=== PATIENT | male | born 1950 | race Caucasian/White ===

== ENCOUNTER 2019-03-02 12:11 | Inpatient (IN) | payer MEDICARE, OTHER ==
[~2019-03-02] VITALS: Ht 167.6 cm; Wt 88.9 kg
[2019-03-02 12:24] VITALS: Ht 167.6 cm; Wt 88.9 kg
[2019-03-02] MEDS ORDERED: VANCOMYCIN 1 GM (PMX) 250 ML IVPB STA (13:35)
[2019-03-02] MEDS ORDERED: PIPER-TAZO 3.375 GM IV (PMX) 100 ML IVPB STA (13:35)
[2019-03-02] MEDS ORDERED: GLIM1TAB2 PO (14:00)
[2019-03-02] MEDS ORDERED: ERGO500013 PO (14:00)
[2019-03-02] MEDS ORDERED: ACETAMINOPHEN 325 MG TAB PO PRN (14:00)
[2019-03-02] MEDS ORDERED: ONDANSETRON 4 MG INJ IV PRN (14:00)
[2019-03-02] MEDS ORDERED: ASPI-817 PO (14:00)
[2019-03-02] MEDS ORDERED: ATOR40TA68 PO (14:01)
[2019-03-02] MEDS ORDERED: MONT10TA24 PO (14:01)
[2019-03-02] MEDS ORDERED: AMIT10TA6 PO (14:01)
[2019-03-02] MEDS ORDERED: AMLO1CAP12 PO (14:02)
[2019-03-02] MEDS ORDERED: LYR75 PO (14:03)
[2019-03-02] MEDS ORDERED: SITA1TAB5 PO (14:03)
[2019-03-02] MEDS ORDERED: TIOT18CA INHALATION (14:05)
[2019-03-02] MEDS ORDERED: ICOS1CAP PO (14:06)
[2019-03-02] MEDS ORDERED: ALBU18HF INHALATION (14:06)
[2019-03-02] MEDS ORDERED: DOCU250C58 PO (14:06)
[2019-03-02] MEDS ORDERED: BUPR150T6 PO (14:09)
[2019-03-02 15:50] VITALS: BP 125/71; PULSE 86; RESP 18
--- NOTE | 2019-03-02 16:11 | ERD ---
ER Documentation Chief Complaint Chief Complaint Sent from MD for evaluation Cellulitis HPI Patient is a 68-year-old male with diabetes who presents with right leg infection. The patient was sent by Dr. Lucas for admission. The patient has right knee redness which started on Tuesday. It has been worsening. He is able to move the leg without pain. He has had no antibiotics as of yet. He had fever and chills per Dr. Lucas. ROS All systems reviewed and are negative except as per history of present illness. Medications Home Meds Reported Medications Bupropion Hcl* (Bupropion XL*) 150 Mg Tab.er.24h, 150 MG PO DAILY, TAB.SA 03/02/19 Icosapent Ethyl (VASCEPA) 1 Gm Capsule, 2 GM PO BID, CAP 03/02/19 Albuterol Sulfate* (Ventolin HFA*) 18 Gm Hfa.aer.ad, 2 PUFF INHALATION Q4H, #1 INHALER 03/02/19 Docusate Sodium* (Colace*) 250 Mg Capsule, 250 MG PO BID, #60 CAP 03/02/19 Tiotropium Spencer* (Spiriva*) 18 Mcg Cap.w.dev, 1 CAP INHALATION DAILY, #30 CAP 03/02/19 Sitagliptin Phos/Metformin HCl (Janumet 50-1,000 mg Tablet) 1 Each Tablet, 1 EACH PO BID, TAB 03/02/19 Pregabalin* (Lyrica*) 75 Mg Capsule, 75 MG PO DAILY, CAP 03/02/19 Amlodipine Besylate/Benazepril (Amlodipine-Benazepril 10-20 mg) 1 Each Capsule, 1 EACH PO DAILY, CAP 03/02/19 Amitriptyline Hcl* (Amitriptyline Hcl*) 10 Mg Tablet, 10 MG PO QHS, #30 TAB 03/02/19 Montelukast Sodium* (Montelukast Sodium*) 10 Mg Tablet, 10 MG PO QHS, #30 TAB 03/02/19 Atorvastatin* (Atorvastatin*) 40 Mg Tablet, 40 MG PO QHS, #30 TAB 03/02/19 Glimepiride* (Glimepiride*) 1 Mg Tablet, 1 MG PO WITH BREAKFAST, TAB 03/02/19 Aspirin* (Aspirin* EC) 81 Mg Tablet., 81 MG PO DAILY, TAB 03/02/19 Ergocalciferol (Vitamin D2) (VITAMIN D2) 50,000 Unit Capsule, 76689 UNIT PO Q 14D, CAP 03/02/19 Allergies Allergies: Coded Allergies: No Known Allergy (Unverified , 03/02/19) PMhx/Soc Medical and Surgical Hx: pt denies Surgical Hx Hx Cardiac Disorders: Yes (cholesterol, HTN) Hx Alcohol Use: Yes (1 shot vodka/ daily) Hx Substance Use: No Hx Tobacco Use: Yes (pack/ daily) Smoking Status: Current every day smoker FmHx Family History: No diabetes Physical Exam Vitals Vital Signs Date Temp Pulse Resp B/P (MAP) Pulse Ox O2 O2 Flow FiO2 Time Delivery Rate 03/02/19 97.9 96 20 127/57 95 12:24 (80) Physical Exam Const: No acute distress Head: Atraumatic Eyes: Normal Conjunctiva ENT: Normal External Ears, Nose and Mouth. Neck: Full range of motion. No meningismus. Resp: Clear to auscultation bilaterally Cardio: Regular rate and rhythm, no murmurs Abd: Soft, non tender, non distended. Normal bowel sounds Skin: Right knee redness over the patella with warmth to touch, no joint effusion, does not appear to be a intra-articular infection. Back: No midline or flank tenderness Ext: No cyanosis, or edema Neur: Awake and alert Psych: Normal Mood and Affect Result Diagram: 03/02/19 1345 03/02/19 1345 Results 24 hrs Laboratory Tests Test 03/02/19 13:45 03/02/19 13:47 White Blood Count 12.3 10^3/ul Red Blood Count 5.27 10^6/ul Hemoglobin 15.2 g/dl Hematocrit 46.8 % Mean Corpuscular Volume 88.8 fl Mean Corpuscular Hemoglobin 28.8 pg Mean Corpuscular Hemoglobin Concent 32.5 g/dl Red Cell Distribution Width 13.5 % Platelet Count 330 10^3/UL Mean Platelet Volume 8.9 fl Immature Granulocytes % 1.100 % Neutrophils % 68.2 % Lymphocytes % 20.6 % Monocytes % 7.7 % Eosinophils % 1.8 % Basophils % 0.6 % Nucleated Red Blood Cells % 0.0 /100WBC Immature Granulocytes # 0.140 10^3/ul Neutrophils # 8.4 10^3/ul Lymphocytes # 2.5 10^3/ul Monocytes # 0.9 10^3/ul Eosinophils # 0.2 10^3/ul Basophils # 0.1 10^3/ul Nucleated Red Blood Cells # 0.0 10^3/ul Sodium Level 137 mmol/L Potassium Level 4.3 mmol/L Chloride Level 97 mmol/L Carbon Dioxide Level 34 mmol/L Anion Gap 6 Blood Urea Nitrogen 15 mg/dl Creatinine 0.71 mg/dl Est Glomerular Filtrat Rate mL/min > 60 mL/min Glucose Level 196 mg/dl Calcium Level 9.4 mg/dl Troponin I < 0.012 ng/ml POC Venous Lactate 1.0 mmol/L Current Medications Medications Dose Sig/Maia Start Time Status Last (Trade) Ordered Route PRN Stop Time Admin Dose Reason Admin Vancomycin 250 ml @ ONCE STAT 03/02/19 DC 03/02/19 HCl 125 mls/hr IVPB 13:35 14:39 03/02/19 15:34 Piperacillin 100 ml @ ONCE STAT 03/02/19 DC 03/02/19 Sod/ 200 mls/hr IVPB 13:35 14:17 Tazobactam 03/02/19 14:04 Sod Procedures/MDM Patient is a 68-year-old male who presents with right leg redness and swelling. Ultrasound was negative for DVT per radiology. The patient likely has acute right leg cellulitis with diabetes. I doubt joint infection. The patient will be admitted to the care of Dr. Lucas to a medical surgical bed. He was given IV antibiotics. I doubt sepsis at this time. Departure Diagnosis: Primary Impression: Cellulitis Site of cellulitis: extremity Site of cellulitis of extremity: lower extremity Laterality: right Qualified Codes: L03.115 - Cellulitis of right lower limb Condition: ANNALISE Faye MD March 02, 2019 16:11
[2019-03-02 19:51] VITALS: BP 117/65; PULSE 95; RESP 18
[2019-03-02] MEDS ORDERED: ACETAMINOPHEN 500 MG TAB PO PRN (20:00)
[2019-03-02] MEDS: ACCU-CHEK XX SCH (20:00)
[2019-03-02] MEDS ORDERED: DIPHENHYDRAMINE 25 MG CAP PO PRN (20:00)
--- NOTE | 2019-03-02 20:21 | PN ---
Date/Time of Note Date/Time of Note DATE: 03/02/19 TIME: 20:13 Assessment/Plan VTE Prophylaxis SCD contraindicated: other (on.) Pharmacological prophylaxis: LMWH Lines/Catheters IV Catheter Type (from Nrsg): Saline Lock Central line still needed: No Urinary Cath still in place: No Reason Cath still needed: urinary retention Assessment/Plan Assessment/Plan 1.Cellulitis of right lower limb 2. Systolic and diastolic congestive heart failure 3. Hypertension out of control 4. COPD 5. Heavy cigarette smoker more than 50 years more than a pack a day 6. BPH 7.Dyslipidemia 8. Obesity 9. Snoring with apnea 10. Ischemic heart disease angina 11. Phosphorus 12. Osteoarthritis 13. Upper and lower back pain 14. Memory impairment 15. Diabetes mellitus type 2 most of the time of control 16.incomplete data Result Diagram: 03/02/19 1345 03/02/19 1345 Results 24hrs Laboratory Tests Test 03/02/19 13:45 03/02/19 13:47 03/02/19 16:46 White Blood Count 12.3 H Red Blood Count 5.27 Hemoglobin 15.2 Hematocrit 46.8 Mean Corpuscular Volume 88.8 Mean Corpuscular Hemoglobin 28.8 L Mean Corpuscular Hemoglobin Concent 32.5 Red Cell Distribution Width 13.5 Platelet Count 330 Mean Platelet Volume 8.9 Immature Granulocytes % 1.100 H Neutrophils % 68.2 Lymphocytes % 20.6 Monocytes % 7.7 Eosinophils % 1.8 Basophils % 0.6 Nucleated Red Blood Cells % 0.0 Immature Granulocytes # 0.140 H Neutrophils # 8.4 H Lymphocytes # 2.5 Monocytes # 0.9 Eosinophils # 0.2 Basophils # 0.1 Nucleated Red Blood Cells # 0.0 Sodium Level 137 Potassium Level 4.3 Chloride Level 97 Carbon Dioxide Level 34 H Anion Gap 6 Blood Urea Nitrogen 15 Creatinine 0.71 Est Glomerular Filtrat Rate mL/min > 60 Glucose Level 196 Calcium Level 9.4 Troponin I < 0.012 POC Venous Lactate 1.0 Lactic Acid Level 1.0 Subjective 24 Hr Interval Summary Free Text/Dictation Patient came to the office with a complaint of being unable to walk secondary to the pain and redness of the anterior part of the right knee which is getting worse last 3 days. The patient is having a fever and chills I did do more lower extremities he was wheezing he was known to me with uncontrolled diabetes mellitus. I have decided to admit the patient to the hospital management for over 2 days control infection which definitely is not cellulitis most probably MRSA and then continue treatment as an outpatient. Subjective hx not possible: pt non-verbal Constitutional: improved, chills, disoriented, poor po, requiring O2; No no complaints, No diaphoresis, No febrile, No requiring IVF, No other Eyes: No no complaints, No pain, No discharge, No redness, No visual change, No other ENT: no complaints, pain, congestion, dysphagia, sore throat; No bleeding, No discharge, No other Respiratory: cough, pleuritic pain, shortness of breath, sputum, wheezing; No no complaints, No pain, No other Cardiovascular: chest pain, edema, lightheadedness, orthopenea, palpitations, paroxysmal nocturnal dyspnea; No no complaints, No other Gastrointestinal: constipation, decreased appetite, flatus, nausea, passing stool; No no complaints, No pain, No blood, No diarrhea, No vomiting, No other Genitourinary: dysuria; No no complaints, No bleeding, No discharge, No flank pain, No hematuria, No other Musculoskeletal: back pain, bone/joint pain, neck pain, swelling Skin: erythema (Right knee anteriorly); No no complaints, No bruising, No laceration, No pruritis, No rash, No skin lesions, No other Neurologic: dizziness, headache; No no complaints, No confusion, No focal-weakness, No syncope, No seizure, No other Endocrine: polydypsia, dry skin; No no complaints, No polyuria, No temp intolerance, No other Lymphatic: lymphadema; No no complaints, No adenopathy, No tender nodes, No other Psychological: anxiety, depression; No no complaints, No nl mood/affect, No confusion, No suicidal, No other Immunologic: No no complaints, No immunodeficiency, No pruritis, No rhinitis, No urticaria, No other Exam/Review of Systems Exam Vitals Vital Signs Date Temp Pulse Resp B/P (MAP) Pulse Ox O2 O2 Flow FiO2 Time Delivery Rate 03/02/19 98.4 95 18 117/65 93 19:51 (82) 03/02/19 Room Air 15:50 Constitutional: alert, oriented, well developed, distress, frail, obese; No non-verbal, No other Psych: anxiety, depression; No no complaints, No nl mood/affect, No confusion, No suicidal, No other Head: normocephalic, atraumatic; No lacerations, No hematomas, No other Eyes: EOMI, nl lids, PERRL, icteric; No nl conjunctiva, No nl sclera, No fundi, disc, No other ENMT: nl external ears & nose, nl nasal mucosa & septum, tympanic membranes; No nl lips & teeth, No mucosa pink and moist, No intubated, No other Neck: jvd, bruits, thyromegaly, nuchal rigidity; No supple, No non-tender, No masses, No other Respiratory: clear to auscultation, congested cough, crackles/rales, diminished breath sounds; No normal air movement, No intercostal retraction, No labored breathing, No respirations, No tactile fremitus, No wheezing, No other Cardiovascular: regular rate and rhythm, nl pulses, bruits, edema, systolic murmur; No diastolic murmur, No gallop, No irregular rhythm, No jugular venous distention (JVD), No murmurs/extra sounds, No rub, No S3, No S4, No other Gastrointestinal: soft, nl liver, spleen, bowel sounds, distended, hepatomegaly; No non-tender, No ascites, No firm, No mass, No rebound or guarding, No splenomegaly, No surgical scars, No tender, No other Genitourinary - Male: nl penis, nl scrotum Musculoskeletal: joint tenderness, muscle tone, muscle weakness; No nl extremities to inspection, No nl gait and stance, No range of motion, No spine non-tender, No swelling, No other Extremities: normal pulses, edema, pitting pedal edema, tenderness, other (Right knee erythematous over the midline just above the patella also inferiorly bright red); No calf tenderness, No cyanosis, No clubbing, No palpable cord Neurological: GLUE MACHINE OPERATOR II-XII intact, numbness; No nl mental status, No nl speech, No nl strength, No confused, No DTR's symmetric, No focal weakness, No lethargic, No reflexes, No unresponsive, No other Skin: nl turgor ( with pain and possible fluid accumulation); No rash or lesions, No diaphoresis, No ecchymosis, No laceration, No punc ture, No other Lymph: No nl lymph nodes, No enlarged, No nontender, No other Results Results 24hrs Laboratory Tests Test 03/02/19 13:45 03/02/19 13:47 03/02/19 16:46 White Blood Count 12.3 H Red Blood Count 5.27 Hemoglobin 15.2 Hematocrit 46.8 Mean Corpuscular Volume 88.8 Mean Corpuscular Hemoglobin 28.8 L Mean Corpuscular Hemoglobin Concent 32.5 Red Cell Distribution Width 13.5 Platelet Count 330 Mean Platelet Volume 8.9 Immature Granulocytes % 1.100 H Neutrophils % 68.2 Lymphocytes % 20.6 Monocytes % 7.7 Eosinophils % 1.8 Basophils % 0.6 Nucleated Red Blood Cells % 0.0 Immature Granulocytes # 0.140 H Neutrophils # 8.4 H Lymphocytes # 2.5 Monocytes # 0.9 Eosinophils # 0.2 Basophils # 0.1 Nucleated Red Blood Cells # 0.0 Sodium Level 137 Potassium Level 4.3 Chloride Level 97 Carbon Dioxide Level 34 H Anion Gap 6 Blood Urea Nitrogen 15 Creatinine 0.71 Est Glomerular Filtrat Rate mL/min > 60 Glucose Level 196 Calcium Level 9.4 Troponin I < 0.012 POC Venous Lactate 1.0 Lactic Acid Level 1.0 LUIGI CHOWDHURY MD March 02, 2019 20:21
[2019-03-02] MEDS: NICOTINE (14 MG/24 HR) PATCH TRANSDERM SCH (20:30)
[2019-03-02] MEDS ORDERED: BUMETANIDE 1 MG TAB PO ONE (20:30)
[2019-03-02] MEDS ORDERED: INSULIN ASPART [NOVOLOG] 3 ML PEN SC SCH (21:00)
[2019-03-02] MEDS: ALBUTEROL HFA 8 GM INHALER INH SCH (21:00)
[2019-03-02] MEDS ORDERED: GLUCOSE GEL 15 GRAM TUBE PO PRN ×2 (21:30)
[2019-03-02] MEDS ORDERED: DEXTROSE 50% 50 ML SYRINGE IV PRN ×2 (21:30)
[2019-03-02] MEDS ORDERED: GLUCAGON 1 MG INJ IM PRN (21:30)
[2019-03-02] MEDS ORDERED: GLUCOSE GEL 15 GRAM TUBE BUCCAL PRN (21:30)
[2019-03-02] MEDS: SPIRONOLACTONE 50 MG TAB PO SCH (22:04)
[2019-03-02] MEDS: MONTELUKAST 10 MG TAB GTB SCH (22:06)
[2019-03-02] MEDS: DOCUSATE SODIUM 250 MG CAP PO SCH (22:07)
[2019-03-02] MEDS: ATORVASTATIN 40 MG TAB PO SCH (22:07)
[2019-03-02] MEDS: AMITRIPTYLINE 10 MG TAB PO SCH (22:07)
[2019-03-03] MEDS ORDERED: INSULIN GLARGINE [LANTus] (100 UNITS/ML) SYG SC ONE
[2019-03-03] MEDS: PIPER-TAZO 3.375 GM IV (PMX) 100 ML IVPB SCH ×4 (00:36→21:44)
[2019-03-03] MEDS: ALBUTEROL HFA 8 GM INHALER INH SCH ×5 (01:00→17:12)
[2019-03-03] MEDS: Insulin NOVOLOG SS MODERATE Algorithm(NPO/TPN/ENTERAL FEEDS) SC SCH ×4 (01:16→19:48)
[2019-03-03 01:24] VITALS: BP 121/71; PULSE 86; RESP 18
[2019-03-03] MEDS ORDERED: INSULIN ASPART [NOVOLOG] 3 ML PEN SC SCH ×3 (01:30→08:00)
[2019-03-03] MEDS ORDERED: ACCU-CHEK XX SCH (02:00)
[2019-03-03] MEDS: ACCU-CHEK XX SCH ×4 (06:00→17:11)
[2019-03-03] MEDS ORDERED: PIPER-TAZO 3.375 GM IV (PMX) 100 ML IVPB SCH (06:00)
[2019-03-03 07:39] VITALS: BP 117/70; PULSE 84; RESP 17
--- NOTE | 2019-03-03 08:32 | PN ---
Date/Time of Note Date/Time of Note DATE: 03/03/19 TIME: 08:29 Assessment/Plan VTE Prophylaxis Risk score (from Ns)>0 risk: 4 SCD applied (from [facility]): No SCD contraindicated: other (on) Pharmacological prophylaxis: LMWH Lines/Catheters [facility] (from [facility] Saline Lock Central line still needed: No Urinary Cath still in place: No Reason Cath still needed: urinary retention Assessment/Plan Assessment/Plan 1.Cellulitis of right lower limb 2. Systolic and diastolic congestive heart failure 3. Hypertension out of control 4. COPD 5. Heavy cigarette smoker more than 50 years more than a pack a day 6. BPH 7.Dyslipidemia 8. Obesity 9. Snoring with apnea 10. Ischemic heart disease angina 11. Phosphorus 12. Osteoarthritis 13. Upper and lower back pain 14. Memory impairment 15. Diabetes mellitus type 2 most of the time of control 16.Hypoxemia 17.Unstable gate 17.incomplete data Result Diagram: 03/02/19 1345 03/02/19 1345 Results 24hrs Laboratory Tests Test 03/02/19 13:45 03/02/19 13:47 03/02/19 16:46 03/02/19 22:00 White Blood Count 12.3 H Red Blood Count 5.27 Hemoglobin 15.2 Hematocrit 46.8 Mean Corpuscular 88.8 Volume Mean Corpuscular 28.8 L Hemoglobin Mean Corpuscular 32.5 Hemoglobin Concent Red Cell 13.5 Distribution Width Platelet Count 330 Mean Platelet Volume 8.9 Immature 1.100 H Granulocytes % Neutrophils % 68.2 Lymphocytes % 20.6 Monocytes % 7.7 Eosinophils % 1.8 Basophils % 0.6 Nucleated Red Blood 0.0 Cells % Immature 0.140 H Granulocytes # Neutrophils # 8.4 H Lymphocytes # 2.5 Monocytes # 0.9 Eosinophils # 0.2 Basophils # 0.1 Nucleated Red Blood 0.0 Cells # Sodium Level 137 Potassium Level 4.3 Chloride Level 97 Carbon Dioxide Level 34 H Anion Gap 6 Blood Urea Nitrogen 15 Creatinine 0.71 Est Glomerular > 60 Filtrat Rate mL/min Glucose Level 196 Calcium Level 9.4 Troponin I < 0.012 POC Venous Lactate 1.0 Lactic Acid Level 1.0 Bedside Glucose 293 H Test 03/03/19 00:35 03/03/19 01:00 03/03/19 03:22 03/03/19 06:12 Lactic Acid Level 1.1 1.3 1.2 Bedside Glucose 167 Subjective 24 Hr Interval Summary Free Text/Dictation Chills not as intense as yesterday. Constitutional: improved, chills, diaphoresis, febrile, poor po, requiring O2; No no complaints, No disoriented, No requiring IVF, No other Eyes: No no complaints, No pain, No discharge, No redness, No visual change, No other ENT: pain, congestion, dysphagia; No no complaints, No bleeding, No discharge, No sore throat, No other Respiratory: cough, pleuritic pain, shortness of breath; No no complaints, No pain, No sputum, No wheezing, No other Cardiovascular: chest pain, edema; No no complaints, No lightheadedness, No orthopenea, No palpitations, No paroxysmal nocturnal dyspnea, No other Gastrointestinal: no complaints, constipation, decreased appetite, flatus, nausea, passing stool; No pain, No blood, No diarrhea, No vomiting, No other Genitourinary: dysuria, discharge; No no complaints, No bleeding, No flank pain, No hematuria, No other Musculoskeletal: back pain, bone/joint pain; No no complaints, No neck pain, No restricted range of motion, No swelling, No other Skin: erythema, pruritis, rash; No no complaints, No bruising, No laceration, No skin lesions, No other Neurologic: dizziness; No no complaints, No confusion, No focal-weakness, No headache, No syncope, No seizure, No other Endocrine: polyuria, dry skin; No no complaints, No polydypsia, No temp intolerance, No other Lymphatic: No no complaints, No adenopathy, No tender nodes, No lymphadema, No other Psychological: anxiety, depression; No no complaints, No nl mood/affect, No confusion, No suicidal, No other Immunologic: No no complaints, No immunodeficiency, No pruritis, No rhinitis, No urticaria, No other Exam/Review of Systems Exam Vitals Vital Signs Date Temp Pulse Resp B/P (MAP) Pulse Ox O2 O2 Flow FiO2 Time Delivery Rate 03/03/19 98.1 84 17 117/70 92 07:39 (86) 03/02/19 Room Air 15:50 Intake and Output 03/02/19 03/02/19 03/03/19 1414:59 22:59 06:59 IntakeIntake Total 350 ml 100 ml BalanceBalance 350 ml 100 ml Constitutional: alert, oriented, well developed, distress, frail Psych: anxiety; No no complaints, No nl mood/affect, No confusion, No depression, No suicidal, No other Head: normocephalic, atraumatic; No lacerations, No hematomas, No other Eyes: EOMI, nl lids; No nl conjunctiva, No nl sclera, No PERRL, No icteric, No fundi, disc, No other ENMT: nl external ears & nose; No nl lips & teeth, No nl nasal mucosa & septum, No mucosa pink and moist, No intubated, No tympanic membranes, No other Neck: supple, jvd, bruits, thyromegaly, nuchal rigidity; No non-tender, No masses, No other Respiratory: congested cough, diminished breath sounds, respirations, wheezing; No clear to auscultation, No normal air movement, No crackles/rales, No intercostal retraction, No labored breathing, No tactile fremitus, No other Cardiovascular: regular rate and rhythm, edema, systolic murmur; No nl pulses, No bruits, No diastolic murmur, No gallop, No irregular rhythm, No jugular venous distention (JVD), No murmurs/extra sounds, No rub, No S3, No S4, No other Gastrointestinal: soft, nl liver, spleen, bowel sounds; No non-tender, No ascites, No distended, No firm, No hepatomegaly, No mass, No rebound or guarding, No splenomegaly, No surgical scars, No tender, No other Genitourinary - Male: nl penis, nl scrotum Musculoskeletal: nl extremities to inspection, muscle tone, muscle weakness; No nl gait and stance, No joint tenderness, No range of motion, No spine non- tender, No swelling, No other Extremities: normal pulses; No calf tenderness, No cyanosis, No clubbing, No edema, No pitting pedal edema, No palpable cord, No tenderness, No other Neurological: CARGO AND CONTAINER INSPECTOR II-XII intact, nl mental status, numbness; No nl speech, No nl strength, No confused, No DTR's symmetric, No focal weak ness, No lethargic, No reflexes, No unresponsive, No other Results Results 24hrs Laboratory Tests Test 03/02/19 13:45 03/02/19 13:47 03/02/19 16:46 03/02/19 22:00 White Blood Count 12.3 H Red Blood Count 5.27 Hemoglobin 15.2 Hematocrit 46.8 Mean Corpuscular 88.8 Volume Mean Corpuscular 28.8 L Hemoglobin Mean Corpuscular 32.5 Hemoglobin Concent Red Cell 13.5 Distribution Width Platelet Count 330 Mean Platelet Volume 8.9 Immature 1.100 H Granulocytes % Neutrophils % 68.2 Lymphocytes % 20.6 Monocytes % 7.7 Eosinophils % 1.8 Basophils % 0.6 Nucleated Red Blood 0.0 Cells % Immature 0.140 H Granulocytes # Neutrophils # 8.4 H Lymphocytes # 2.5 Monocytes # 0.9 Eosinophils # 0.2 Basophils # 0.1 Nucleated Red Blood 0.0 Cells # Sodium Level 137 Potassium Level 4.3 Chloride Level 97 Carbon Dioxide Level 34 H Anion Gap 6 Blood Urea Nitrogen 15 Creatinine 0.71 Est Glomerular > 60 Filtrat Rate mL/min Glucose Level 196 Calcium Level 9.4 Troponin I < 0.012 POC Venous Lactate 1.0 Lactic Acid Level 1.0 Bedside Glucose 293 H Test 03/03/19 00:35 03/03/19 01:00 03/03/19 03:22 03/03/19 06:12 Lactic Acid Level 1.1 1.3 1.2 Bedside Glucose 167 Medications Medication Current Medications Diagnostic Test (Pha) (Accu-Chek) 1 ea Q6 XX Last administered on 03/03/19at 00:00; Admin Dose 1 EA; Start 03/02/19 at 20:00; Stop 03/03/19 at 19:59 Acetaminophen (Tylenol Tab) 500 mg Q8 PRN PO MILD PAIN(1-3)OR ELEVATED TEMP; Start 03/02/19 at 20:00 Diphenhydramine HCl (Benadryl) 25 mg Q8 PRN PO ITCHING Last administered on 03/02/19at 22:08; Admin Dose 25 MG; Start 03/02/19 at 20:00 Albuterol (Ventolin Hfa) 2 puff Q4H RESP THERAPY INH ; Start 03/02/19 at 21:00 Amitriptyline HCl (Elavil) 10 mg HS PO Last administered on 03/02/19at 22:07; Admin Dose 10 MG; Start 03/02/19 at 21:00 Aspirin (Halfprin) 81 mg DAILY PO ; Start 03/03/19 at 09:00 Atorvastatin Calcium (Lipitor) 40 mg HS PO Last administered on 03/02/19at 22:07; Admin Dose 40 MG; Start 03/02/19 at 21:00 Bupropion HCl (Wellbutrin Xl) 150 mg DAILY PO ; Start 03/03/19 at 09:00 Docusate Sodium (Colace) 250 mg BID PO Last administered on 03/02/19at 22:07; Admin Dose 250 MG; Start 03/02/19 at 21:00 Glimepiride (Amaryl) 1 mg AC BREAKFAST GTB ; Start 03/03/19 at 07:00 Montelukast Sodium (Singulair) 10 mg HS GTB Last administered on 03/02/19at 22:06; Admin Dose 10 MG; Start 03/02/19 at 21:00 Pregabalin (Lyrica) 75 mg DAILY PO ; Start 03/03/19 at 09:00 Tiotropium [place] (Spiriva) 1 inh DAILY INH ; Start 03/03/19 at 09:00 Vancomycin HCl 250 ml @ 125 mls/hr Q24H IVPB ; Start 03/03/19 at 09:00 Nicotine (Nicoderm 14 Mg/ 24hr) 1 patch DAILY TRANSDERM ; Start 03/02/19 at 20:30 Spironolactone (Aldactone) 50 mg DAILY PO Last administered on 03/02/19at 22:04; Admin Dose 50 MG; Start 03/02/19 at 20:30 Miscellaneous Information 1 ea NOTE XX ; Start 03/02/19 at 21:30 Glucose (Glutose) 15 gm Q15M PRN PO DECREASED GLUCOSE; Start 03/02/19 at 21:30 Glucose (Glutose) 22.5 gm Q15M PRN PO DECREASED GLUCOSE; Start 03/02/19 at 21:30 Dextrose (D50w Syringe) 25 ml Q15M PRN IV DECREASED GLUCOSE; Start 03/02/19 at 21:30 Dextrose (D50w Syringe) 50 ml Q15M PRN IV DECREASED GLUCOSE; Start 03/02/19 at 21:30 Glucagon (Glucagen) 1 mg Q15M PRN IM DECREASED GLUCOSE; Start 03/02/19 at 21:30 Glucose (Glutose) 15 gm Q15M PRN BUCCAL DECREASED GLUCOSE; Start 03/02/19 at 21 :30 Amlodipine Besylate (Norvasc) 10 mg DAILY PO ; Start 03/03/19 at 09:00 Benazepril HCl (Lotensin) 20 mg DAILY PO ; Start 03/03/19 at 09:00 Non-Formulary Medication 1 ea BID PO ; Start 03/03/19 at 09:00; Status UNV Metformin HCl (Glucophage) 1,000 mg BID WITH MEALS PO ; Start 03/03/19 at 08:00 Linagliptin (Tradjenta) 2.5 mg BID WITH MEALS PO ; Start 03/03/19 at 08:00 Piperacillin Sod/ Tazobactam Sod 100 ml @ 200 mls/hr Q8 IVPB Last administered on 03/03/19at 06:25; Admin Dose 200 MLS/HR; Start 03/02/19 at 23:00 Insulin Aspart (Novolog Insulin Pen) (Adult SC Insulin - Moder... Q6H SC Last administered on 03/03/19at 01:16; Admin Dose 2 UNIT; Start 03/03/19 at 01:30; Stop 03/03/19 at 20:59 LUIGI CHOWDHURY MD March 03, 2019 08:32
[2019-03-03] MEDS: DOCUSATE SODIUM 250 MG CAP PO SCH ×2 (08:39→21:43)
[2019-03-03] MEDS: TIOTROPIUM 18 MCG CAPSULE INHA DEV INH SCH (08:39)
[2019-03-03] MEDS: AMLODIPINE 10 MG TAB PO SCH (08:42)
[2019-03-03] MEDS: BUPROPION (XL) 150 MG TAB PO SCH (08:42)
[2019-03-03] MEDS: LINAGLIPTIN 5 MG TABLET PO SCH ×2 (08:43→17:10)
[2019-03-03] MEDS: PREGABALIN 75 MG CAP PO SCH (08:43)
[2019-03-03] MEDS: GLIMEPIRIDE 2 MG TAB GTB SCH (08:43)
[2019-03-03] MEDS: ASPIRIN (EC) 81 MG TAB PO SCH (08:43)
[2019-03-03] MEDS: BENAZEPRIL 20 MG TAB PO SCH (08:44)
[2019-03-03] MEDS: metFORMIN 500 MG TAB PO SCH ×2 (08:44→17:09)
[2019-03-03] MEDS: SPIRONOLACTONE 50 MG TAB PO SCH (08:44)
[2019-03-03] MEDS: VANCOMYCIN 1 GM (PMX) 250 ML IVPB SCH (08:46)
[2019-03-03] MEDS: NICOTINE (14 MG/24 HR) PATCH TRANSDERM SCH (08:49)
[2019-03-03] MEDS ORDERED: SPECIAL NON-STANDARD MEDICATION PO SCH (09:00)
[2019-03-03 14:42] VITALS: BP 97/54; PULSE 95; RESP 18
[2019-03-03] MEDS: FISH OIL 1,000 MG CAP PO SCH ×2 (17:10→21:43)
[2019-03-03 19:43] VITALS: BP 100/64; PULSE 90; RESP 18
--- NOTE | 2019-03-03 20:50 | CONS ---
Assessment/Plan Assessment/Plan Hospital Course (Demo Recall) Assessment: Right lower extremity cellulitis - improving on intravenous antibiotics Congestive heart failure - left ventricular function unknown, clinically compensated Coronary artery disease - details unknown, clinicallys table Hypertension Dyslipidemia Diabetes mellitus Chronic obstructive pulmonary disease Benign prostate hyperplasia Recommendations: -continue aspirin 81mg daily -continue atorvastatin 40mg daily -continue amlodipine 10mg daily, benazepril 20mg daily, spironolactone 50mg daily - monitor blood pressures, adjust as needed Consultation Date/Type/Reason Admit Date/Time March 02, 2019 at 13:49 Type of Consult Cardiology Reason for Consultation congestive heart failure, coronary artery disease Requesting Provider: NOLBERTO CHOWDHURY MD Date/Time of Note DATE: 03/03/19 TIME: 20:43 Hx of Present Illness The patient is a 68 year-old male who presented to his primary care provider (Dr. Nolberto Chowdhury) with right lower extremity erythema and pain, and was diagnosed with cellulitis. He was admitted to the hospital for intravenous antibiotics. Medical records indicate a history of coronary artery disease and congestive heart failure, though the patient is unclear about the details and denies kno wledge of heart disease. He is currently without chest pain or shortness of breath. Troponin was ne gative. 14 point review of systems negative other than per HPI. Past Medical History Congestive heart failure Coronary artery disease Hypertension Dyslipidemia Diabetes mellitus Chronic obstructive pulmonary disease Benign prostate hyperplasia Home Meds Reported Medications Bupropion Hcl* (Bupropion XL*) 150 Mg Tab.er.24h, 150 MG PO DAILY, TAB.SA 03/02/19 Icosapent Ethyl (VASCEPA) 1 Gm Capsule, 2 GM PO BID, CAP 03/02/19 Albuterol Sulfate* (Ventolin HFA*) 18 Gm Hfa.aer.ad, 2 PUFF INHALATION Q4H, #1 INHALER 03/02/19 Docusate Sodium* (Colace*) 250 Mg Capsule, 250 MG PO BID, #60 CAP 03/02/19 Tiotropium Baldwin* (Spiriva*) 18 Mcg Cap.w.dev, 1 CAP INHALATION DAILY, #30 CAP 03/02/19 Sitagliptin Phos/Metformin HCl (Janumet 50-1,000 mg Tablet) 1 Each Tablet, 1 EACH PO BID, TAB 03/02/19 Pregabalin* (Lyrica*) 75 Mg Capsule, 75 MG PO DAILY, CAP 03/02/19 Amlodipine Besylate/Benazepril (Amlodipine-Benazepril 10-20 mg) 1 Each Capsule, 1 EACH PO DAILY, CAP 03/02/19 Amitriptyline Hcl* (Amitriptyline Hcl*) 10 Mg Tablet, 10 MG PO QHS, #30 TAB 03/02/19 Montelukast Sodium* (Montelukast Sodium*) 10 Mg Tablet, 10 MG PO QHS, #30 TAB 03/02/19 Atorvastatin* (Atorvastatin*) 40 Mg Tablet, 40 MG PO QHS, #30 TAB 03/02/19 Glimepiride* (Glimepiride*) 1 Mg Tablet, 1 MG PO WITH BREAKFAST, TAB 03/02/19 Aspirin* (Aspirin* EC) 81 Mg Tablet.dr, 81 MG PO DAILY, TAB 03/02/19 Ergocalciferol (Vitamin D2) (VITAMIN D2) 50,000 Unit Capsule, 05184 UNIT PO Q 14D, CAP 03/02/19 Medications Current Medications Acetaminophen (Tylenol Tab) 500 mg Q8 PRN PO MILD PAIN(1-3)OR ELEVATED TEMP; Start 03/02/19 at 20:00 Diphenhydramine HCl (Benadryl) 25 mg Q8 PRN PO ITCHING Last administered on 03/02/19at 22:08; Admin Dose 25 MG; Start 03/02/19 at 20:00 Albuterol (Ventolin Hfa) 2 puff Q4H RESP THERAPY INH Last administered on 03/03/19at 17:12; Admin Dose 2 PUFF; Start 03/02/19 at 21:00 Amitriptyline HCl (Elavil) 10 mg HS PO Last administered on 03/02/19at 22:07; Admin Dose 10 MG; Start 03/02/19 at 21:00 Aspirin (Halfprin) 81 mg DAILY PO Last administered on 03/03/19at 08:43; Admin Dose 81 MG; Start 03/03/19 at 09:00 Atorvastatin Calcium (Lipitor) 40 mg HS PO Last administered on 03/02/19at 22:07; Admin Dose 40 MG; Start 03/02/19 at 21:00 Bupropion HCl (Wellbutrin Xl) 150 mg DAILY PO Last administered on 03/03/19 08:42; Admin Dose 150 MG; Start 03/03/19 at 09:00 Docusate Sodium (Colace) 250 mg BID PO Last administered on 03/03/19 08:39; Admin Dose 250 MG; Start 03/02/19 at 21:00 Glimepiride (Amaryl) 1 mg AC BREAKFAST GTB Last administered on 03/03/19 08:43; Admin Dose 1 MG; Start 03/03/19 at 07:00 Montelukast Sodium (Singulair) 10 mg HS GTB Last administered on 03/02/19 22:06; Admin Dose 10 MG; Start 03/02/19 at 21:00 Pregabalin (Lyrica) 75 mg DAILY PO Last administered on 03/03/19 08:43; Admin Dose 75 MG; Start 03/03/19 at 09:00 Tiotropium Baldwin (Spiriva) 1 inh DAILY INH Last administered on 03/03/19 08:39; Admin Dose 1 INH; Start 03/03/19 at 09:00 Vancomycin HCl 250 ml @ 125 mls/hr Q24H IVPB Last administered on 03/03/19 08:46; Admin Dose 125 MLS/HR; Start 03/03/19 at 09:00 Nicotine (Nicoderm 14 Mg/ 24hr) 1 patch DAILY TRANSDERM ; Start 03/02/19 at 20:30 Spironolactone (Aldactone) 50 mg DAILY PO Last administered on 03/03/19 08:44; Admin Dose 50 MG; Start 03/02/19 at 20:30 Miscellaneous Information 1 ea NOTE XX ; Start 03/02/19 at 21:30 Glucose (Glutose) 15 gm Q15M PRN PO DECREASED GLUCOSE; Start 03/02/19 at 21:30 Glucose (Glutose) 22.5 gm Q15M PRN PO DECREASED GLUCOSE; Start 03/02/19 at 21:30 Dextrose (D50w Syringe) 25 ml Q15M PRN IV DECREASED GLUCOSE; Start 03/02/19 at 21:30 Dextrose (D50w Syringe) 50 ml Q15M PRN IV DECREASED GLUCOSE; Start 03/02/19 at 21:30 Glucagon (Glucagen) 1 mg Q15M PRN IM DECREASED GLUCOSE; Start 03/02/19 at 21:30 Glucose (Glutose) 15 gm Q15M PRN BUCCAL DECREASED GLUCOSE; Start 03/02/19 at 21:30 Amlodipine Besylate (Norvasc) 10 mg DAILY PO Last administered on 03/03/19at 08:42; Admin Dose 10 MG; Start 03/03/19 at 09:00 Benazepril HCl (Lotensin) 20 mg DAILY PO Last administered on 03/03/19at 08:44; Admin Dose 20 MG; Start 03/03/19 at 09:00 Fish Oil (Fish Oil) 2,000 mg BID PO Last administered on 03/03/19at 17:10; Admin Dose 2,000 MG; Start 03/03/19 at 15:30 Metformin HCl (Glucophage) 1,000 mg BID WITH MEALS PO Last administered on 03/03/19at 17:09; Admin Dose 1,000 MG; Start 03/03/19 at 08:00 Linagliptin (Tradjenta) 2.5 mg BID WITH MEALS PO Last administered on at 17:10; Admin Dose 2.5 MG; Start 03/03/19 at 08:00 Piperacillin Sod/ Tazobactam Sod 100 ml @ 200 mls/hr Q8 IVPB Last administered on 03/03/19at 13:48; Admin Dose 200 MLS/HR; Start 03/02/19 at 23:00 Insulin Aspart (Novolog Insulin Pen) (Adult SC Insulin - Moder... Q6H SC Last administered on 03/03/19at 19:48; Admin Dose 4 UNIT; Start 03/03/19 at 01:30; Stop 03/03/19 at 20:59 Allergies: Coded Allergies: No Known Allergy (Unverified , 03/02/19) Family History Significant Family History: no pertinent family hx Social History Smoking Status: Current every day smoker Exam/Review of Systems Vital Signs Vitals Vital Signs Date Temp Pulse Resp B/P (MAP) Pulse Ox O2 O2 Flow FiO2 Time Delivery Rate 03/03/19 98.1 90 18 100/64 97 19:43 (76) 03/02/19 Room Air 15:50 Intake and Output 03/02/19 03/02/19 03/03/19 1515:00 23:00 07:00 IntakeIntake Total 350 ml 100 ml BalanceBalance 350 ml 100 ml Exam Constitutional: alert, well developed Psych: no complaints, nl mood/affect Head: normocephalic, atraumatic Eyes: nl conjunctiva, nl lids ENMT: nl external ears & nose, nl nasal mucosa & septum Neck: supple, non-tender Respiratory: wheezing (scattered) Cardiovascular: regular rate and rhythm Gastrointestinal: soft, non-tender Musculoskeletal: other (right lower extremity erythema around knee) Extremities: No cyanosis, No clubbing, No edema Labs Result Diagram: 03/02/19 1345 03/02/19 1345 Results 24hrs Laboratory Tests Test 03/02/19 22:00 03/03/19 00:35 03/03/19 01:00 03/03/19 03:22 Bedside Glucose 293 H 167 Lactic Acid Level 1.1 1.3 Test 03/03/19 06:12 03/03/19 08:38 03/03/19 12:33 03/03/19 17:09 Lactic Acid Level 1.2 Bedside Glucose 201 164 205 Test 03/03/19 19:43 Bedside Glucose 219 Medications Medications Current Medications Acetaminophen (Tylenol Tab) 500 mg Q8 PRN PO MILD PAIN(1-3)OR ELEVATED TEMP; Start 03/02/19 at 20:00 Diphenhydramine HCl (Benadryl) 25 mg Q8 PRN PO ITCHING Last administered on 03/02/19at 22:08; Admin Dose 25 MG; Start 03/02/19 at 20:00 Albuterol (Ventolin Hfa) 2 puff Q4H RESP THERAPY INH Last administered on 03/03/19at 17:12; Admin Dose 2 PUFF; Start 03/02/19 at 21:00 Amitriptyline HCl (Elavil) 10 mg HS PO Last administered on 03/02/19at 22:07; Admin Dose 10 MG; Start 03/02/19 at 21:00 Aspirin (Halfprin) 81 mg DAILY PO Last administered on 03/03/19 08:43; Admin Dose 81 MG; Start 03/03/19 at 09:00 Atorvastatin Calcium (Lipitor) 40 mg HS PO Last administered on 03/02/19 22:07; Admin Dose 40 MG; Start 03/02/19 at 21:00 Bupropion HCl (Wellbutrin Xl) 150 mg DAILY PO Last administered on 03/03/19at 08:42; Admin Dose 150 MG; Start 03/03/19 at 09:00 Docusate Sodium (Colace) 250 mg BID PO Last administered on 03/03/19 08:39; Admin Dose 250 MG; Start 03/02/19 at 21:00 Glimepiride (Amaryl) 1 mg AC BREAKFAST GTB Last administered on 03/03/19 08:43; Admin Dose 1 MG; Start 03/03/19 at 07:00 Montelukast Sodium (Singulair) 10 mg HS GTB Last administered on 03/02/19at 22:06; Admin Dose 10 MG; Start 03/02/19 at 21:00 Pregabalin (Lyrica) 75 mg DAILY PO Last administered on 03/03/19 08:43; Admin Dose 75 MG; Start 03/03/19 at 09:00 Tiotropium Baldwin (Spiriva) 1 inh DAILY INH Last administered on 03/03/19 08:39; Admin Dose 1 INH; Start 03/03/19 at 09:00 Vancomycin HCl 250 ml @ 125 mls/hr Q24H IVPB Last administered on 03/03/19at 08:46; Admin Dose 125 MLS/HR; Start 03/03/19 at 09:00 Nicotine (Nicoderm 14 Mg/ 24hr) 1 patch DAILY TRANSDERM ; Start 03/02/19 at 20:30 Spironolactone (Aldactone) 50 mg DAILY PO Last administered on 03/03/19at 08:44; Admin Dose 50 MG; Start 03/02/19 at 20:30 Miscellaneous Information 1 ea NOTE XX ; Start 03/02/19 at 21:30 Glucose (Glutose) 15 gm Q15M PRN PO DECREASED GLUCOSE; Start 03/02/19 at 21:30 Glucose (Glutose) 22.5 gm Q15M PRN PO DECREASED GLUCOSE; Start 03/02/19 at 21:30 Dextrose (D50w Syringe) 25 ml Q15M PRN IV DECREASED GLUCOSE; Start 03/02/19 at 21:30 Dextrose (D50w Syringe) 50 ml Q15M PRN IV DECREASED GLUCOSE; Start 03/02/19 at 21:30 Glucagon (Glucagen) 1 mg Q15M PRN IM DECREASED GLUCOSE; Start 03/02/19 at 21:30 Glucose (Glutose) 15 gm Q15M PRN BUCCAL DECREASED GLUCOSE; Start 03/02/19 at 21:30 Amlodipine Besylate (Norvasc) 10 mg DAILY PO Last administered on 03/03/19 08:42; Admin Dose 10 MG; Start 03/03/19 at 09:00 Benazepril HCl (Lotensin) 20 mg DAILY PO Last administered on 03/03/19 08:44; Admin Dose 20 MG; Start 03/03/19 at 09:00 Fish Oil (Fish Oil) 2,000 mg BID PO Last administered on 03/03/19 17:10; Admin Dose 2,000 MG; Start 03/03/19 at 15:30 Metformin HCl (Glucophage) 1,000 mg BID WITH MEALS PO Last administered on 03/03/19 17:09; Admin Dose 1,000 MG; Start 03/03/19 at 08:00 Linagliptin (Tradjenta) 2.5 mg BID WITH MEALS PO Last administered on 03/03/19 17:10; Admin Dose 2.5 MG; Start 03/03/19 at 08:00 Piperacillin Sod/ Tazobactam Sod 100 ml @ 200 mls/hr Q8 IVPB Last administered on 03/03/19 13:48; Admin Dose 200 MLS/HR; Start 03/02/19 at 23:00 Insulin Aspart (Novolog Insulin Pen) (Adult SC Insulin - Moder... Q6H SC Last administered on 03/03/19 19:48; Admin Dose 4 UNIT; Start 03/03/19 at 01:30; Stop 03/03/19 at 20:59 MAMADOU TEJEDA MD March 03, 2019 20:50
[2019-03-03] MEDS: MONTELUKAST 10 MG TAB GTB SCH (21:43)
[2019-03-03] MEDS: ATORVASTATIN 40 MG TAB PO SCH (21:43)
[2019-03-03] MEDS: AMITRIPTYLINE 10 MG TAB PO SCH (21:43)
[2019-03-04] MEDS: ALBUTEROL HFA 8 GM INHALER INH SCH ×4 (01:00→21:00)
[2019-03-04 01:51] VITALS: BP 112/68; PULSE 83; RESP 18
[2019-03-04] MEDS: PIPER-TAZO 3.375 GM IV (PMX) 100 ML IVPB SCH ×3 (06:36→21:19)
[2019-03-04] MEDS: GLIMEPIRIDE 2 MG TAB GTB SCH (06:44)
[2019-03-04 07:37] VITALS: BP 103/68; PULSE 86; RESP 18
[2019-03-04] MEDS: FISH OIL 1,000 MG CAP PO SCH ×2 (08:33→20:08)
[2019-03-04] MEDS: AMLODIPINE 10 MG TAB PO SCH (08:33)
[2019-03-04] MEDS: BUPROPION (XL) 150 MG TAB PO SCH (08:33)
[2019-03-04] MEDS: ASPIRIN (EC) 81 MG TAB PO SCH (08:33)
[2019-03-04] MEDS: DOCUSATE SODIUM 250 MG CAP PO SCH ×2 (08:33→20:08)
[2019-03-04] MEDS: metFORMIN 500 MG TAB PO SCH ×2 (08:34→17:19)
[2019-03-04] MEDS: LINAGLIPTIN 5 MG TABLET PO SCH ×2 (08:34→17:19)
[2019-03-04] MEDS: BENAZEPRIL 20 MG TAB PO SCH (08:34)
[2019-03-04] MEDS: SPIRONOLACTONE 50 MG TAB PO SCH (08:35)
[2019-03-04] MEDS: PREGABALIN 75 MG CAP PO SCH (08:35)
[2019-03-04] MEDS: TIOTROPIUM 18 MCG CAPSULE INHA DEV INH SCH (08:36)
[2019-03-04] MEDS: NICOTINE (14 MG/24 HR) PATCH TRANSDERM SCH (08:40)
[2019-03-04] MEDS: VANCOMYCIN 1 GM (PMX) 250 ML IVPB SCH (09:14)
--- NOTE | 2019-03-04 12:26 | CONS ---
Assessment/Plan Assessment/Plan Hospital Course (Demo Recall) Assessment: Right lower extremity cellulitis - improving on intravenous antibiotics Congestive heart failure - left ventricular function unknown, clinically compensated Coronary artery disease - details unknown, clinicallys table Hypertension Dyslipidemia Diabetes mellitus Chronic obstructive pulmonary disease Benign prostate hyperplasia Recommendations: -continue aspirin 81mg daily -continue atorvastatin 40mg daily -continue amlodipine 10mg daily, benazepril 20mg daily, spironolactone 50mg daily - monitor blood pressures, adjust as needed Consultation Date/Type/Reason Admit Date/Time March 02, 2019 at 13:49 Initial Consult Date Type of Consult Cardiology Date/Time of Note DATE: 03/04/19 TIME: 12:25 24 HR Interval Summary Free Text/Dictation No acute events. Denies chest pain or shortness of breath. Detailed Summary Additional Comments 14 point review of systems without changes. Exam/Review of Systems Vital Signs Vitals Vital Signs Date Temp Pulse Resp B/P (MAP) Pulse Ox O2 O2 Flow FiO2 Time Delivery Rate 03/04/19 Nasal 2.0 07:47 Cannula 03/04/19 97.6 86 18 103/68 93 07:37 (80) Intake and Output 03/03/19 03/03/19 03/04/19 1515:00 23:00 07:00 IntakeIntake Total 450 ml 1340 ml BalanceBalance 450 ml 1340 ml Exam Exam Constitutional: alert, well developed Psych: no complaints, nl mood/affect Head: normocephalic, atraumatic Eyes: nl conjunctiva, nl lids ENMT: nl external ears & nose, nl nasal mucosa & septum Neck: supple, non-tender Respiratory: wheezing (scattered) Cardiovascular: regular rate and rhythm Gastrointestinal: soft, non-tender Musculoskeletal: other (right lower extremity erythema around knee) Extremities: No cyanosis, No clubbing, No edema Labs Result Diagram: 03/02/19 1345 03/04/19 0535 Results 24hrs Laboratory Tests Test 03/03/19 12:33 03/03/19 17:09 03/03/19 19:43 03/04/19 02:00 Bedside Glucose 164 205 219 183 Test 03/04/19 05:35 03/04/19 06:40 03/04/19 07:55 Blood Urea Nitrogen 21 H Creatinine 0.80 Bedside Glucose 214 166 Medications Medications Current Medications Acetaminophen (Tylenol Tab) 500 mg Q8 PRN PO MILD PAIN(1-3)OR ELEVATED TEMP; Start 03/02/19 at 20:00 Diphenhydramine HCl (Benadryl) 25 mg Q8 PRN PO ITCHING Last administered on 22:08; Admin Dose 25 MG; Start 03/02/19 at 20:00 Albuterol (Ventolin Hfa) 2 puff Q4H RESP THERAPY INH Last administered on 03/03/19 17:12; Admin Dose 2 PUFF; Start 03/02/19 at 21:00 Amitriptyline HCl (Elavil) 10 mg HS PO Last administered on 03/03/19 21:43; Admin Dose 10 MG; Start 03/02/19 at 21:00 Aspirin (Halfprin) 81 mg DAILY PO Last administered on 03/04/19 08:33; Admin Dose 81 MG; Start 03/03/19 at 09:00 Atorvastatin Calcium (Lipitor) 40 mg HS PO Last administered on 03/03/19 21:43; Admin Dose 40 MG; Start 03/02/19 at 21:00 Bupropion HCl (Wellbutrin Xl) 150 mg DAILY PO Last administered on 03/04/19 08:33; Admin Dose 150 MG; Start 03/03/19 at 09:00 Docusate Sodium (Colace) 250 mg BID PO Last administered on 03/04/19 08:33; Admin Dose 250 MG; Start 03/02/19 at 21:00 Glimepiride (Amaryl) 1 mg AC BREAKFAST GTB Last administered on 03/04/19 06:44; Admin Dose 1 MG; Start 03/03/19 at 07:00 Montelukast Sodium (Singulair) 10 mg HS GTB Last administered on 03/03/19 21:43; Admin Dose 10 MG; Start 03/02/19 at 21:00 Pregabalin (Lyrica) 75 mg DAILY PO Last administered on 03/04/19 08:35; Admin Dose 75 MG; Start 03/03/19 at 09:00 Tiotropium [place] (Spiriva) 1 inh DAILY INH Last administered on 03/03/19 08:39; Admin Dose 1 INH; Start 03/03/19 at 09:00 Vancomycin HCl 250 ml @ 125 mls/hr Q24H IVPB Last administered on 03/04/19at 09:14; Admin Dose 125 MLS/HR; Start 03/03/19 at 09:00 Nicotine (Nicoderm 14 Mg/ 24hr) 1 patch DAILY TRANSDERM ; Start 03/02/19 at 20:30 Spironolactone (Aldactone) 50 mg DAILY PO Last administered on 03/04/19at 08:35; Admin Dose 50 MG; Start 03/02/19 at 20:30 Miscellaneous Information 1 ea NOTE XX ; Start 03/02/19 at 21:30 Glucose (Glutose) 15 gm Q15M PRN PO DECREASED GLUCOSE; Start 03/02/19 at 21:30 Glucose (Glutose) 22.5 gm Q15M PRN PO DECREASED GLUCOSE; Start 03/02/19 at 21:30 Dextrose (D50w Syringe) 25 ml Q15M PRN IV DECREASED GLUCOSE; Start 03/02/19 at 21:30 Dextrose (D50w Syringe) 50 ml Q15M PRN IV DECREASED GLUCOSE; Start 03/02/19 at 21:30 Glucagon (Glucagen) 1 mg Q15M PRN IM DECREASED GLUCOSE; Start 03/02/19 at 21:30 Glucose (Glutose) 15 gm Q15M PRN BUCCAL DECREASED GLUCOSE; Start 03/02/19 at 21:30 Amlodipine Besylate (Norvasc) 10 mg DAILY PO Last administered on 03/04/19at 08:33; Admin Dose 10 MG; Start 03/03/19 at 09:00 Benazepril HCl (Lotensin) 20 mg DAILY PO Last administered on 03/04/19 08:34; Admin Dose 20 MG; Start 03/03/19 at 09:00 Fish Oil (Fish Oil) 2,000 mg BID PO Last administered on 03/04/19 08:33; Admin Dose 2,000 MG; Start 03/03/19 at 15:30 Metformin HCl (Glucophage) 1,000 mg BID WITH MEALS PO Last administered on 03/04/19 08:34; Admin Dose 1,000 MG; Start 03/03/19 at 08:00 Linagliptin (Tradjenta) 2.5 mg BID WITH MEALS PO Last administered on 03/04/19 08:34; Admin Dose 2.5 MG; Start 03/03/19 at 08:00 Piperacillin Sod/ Tazobactam Sod 100 ml @ 200 mls/hr Q8 IVPB Last administered on 03/04/19at 06:36; Admin Dose 200 MLS/HR; Start 03/02/19 at 23:00 MAMADOU TEJEDA MD March 04, 2019 12:26
[2019-03-04 14:32] VITALS: BP 104/60; PULSE 94; RESP 18
--- NOTE | 2019-03-04 18:10 | CONS ---
Consultation Date/Type/Reason Admit Date/Time March 02, 2019 at 13:49 Date/Time of Note DATE: 03/04/19 TIME: 18:10 Past Medical History Home Meds Reported Medications Bupropion Hcl* (Bupropion XL*) 150 Mg Tab.er.24h, 150 MG PO DAILY, TAB.SA 03/02/19 Icosapent Ethyl (VASCEPA) 1 Gm Capsule, 2 GM PO BID, CAP 03/02/19 Albuterol Sulfate* (Ventolin HFA*) 18 Gm Hfa.aer.ad, 2 PUFF INHALATION Q4H, #1 INHALER 03/02/19 Docusate Sodium* (Colace*) 250 Mg Capsule, 250 MG PO BID, #60 CAP 03/02/19 Tiotropium [place]* (Spiriva*) 18 Mcg Cap.w.dev, 1 CAP INHALATION DAILY, #30 CAP 03/02/19 Sitagliptin Phos/Metformin HCl (Janumet 50-1,000 mg Tablet) 1 Each Tablet, 1 EACH PO BID, TAB 03/02/19 Pregabalin* (Lyrica*) 75 Mg Capsule, 75 MG PO DAILY, CAP 03/02/19 Amlodipine Besylate/Benazepril (Amlodipine-Benazepril 10-20 mg) 1 Each Capsule, 1 EACH PO DAILY, CAP 03/02/19 Amitriptyline Hcl* (Amitriptyline Hcl*) 10 Mg Tablet, 10 MG PO QHS, #30 TAB 03/02/19 Montelukast Sodium* (Montelukast Sodium*) 10 Mg Tablet, 10 MG PO QHS, #30 TAB 03/02/19 Atorvastatin* (Atorvastatin*) 40 Mg Tablet, 40 MG PO QHS, #30 TAB 03/02/19 Glimepiride* (Glimepiride*) 1 Mg Tablet, 1 MG PO WITH BREAKFAST, TAB 03/02/19 Aspirin* (Aspirin* EC) 81 Mg Tablet.dr, 81 MG PO DAILY, TAB 03/02/19 Ergocalciferol (Vitamin D2) (VITAMIN D2) 50,000 Unit Capsule, 00960 UNIT PO Q 14D, CAP 03/02/19 Medications Current Medications Acetaminophen (Tylenol Tab) 500 mg Q8 PRN PO MILD PAIN(1-3)OR ELEVATED TEMP; Start 03/02/19 at 20:00 Diphenhydramine HCl (Benadryl) 25 mg Q8 PRN PO ITCHING Last administered on 03/02/19 22:08; Admin Dose 25 MG; Start 03/02/19 at 20:00 Albuterol (Ventolin Hfa) 2 puff Q4H RESP THERAPY INH Last administered on 03/03/19 17:12; Admin Dose 2 PUFF; Start 03/02/19 at 21:00 Amitriptyline HCl (Elavil) 10 mg HS PO Last administered on 03/03/19 21:43; Admin Dose 10 MG; Start 03/02/19 at 21:00 Aspirin (Halfprin) 81 mg DAILY PO Last administered on 03/04/19 08:33; Admin Dose 81 MG; Start 03/03/19 at 09:00 Atorvastatin Calcium (Lipitor) 40 mg HS PO Last administered on 03/03/19 21:43; Admin Dose 40 MG; Start 03/02/19 at 21:00 Bupropion HCl (Wellbutrin Xl) 150 mg DAILY PO Last administered on 03/04/19 08:33; Admin Dose 150 MG; Start 03/03/19 at 09:00 Docusate Sodium (Colace) 250 mg BID PO Last administered on 03/04/19 08:33; Admin Dose 250 MG; Start 03/02/19 at 21:00 Glimepiride (Amaryl) 1 mg AC BREAKFAST GTB Last administered on 03/04/19 06:44; Admin Dose 1 MG; Start 03/03/19 at 07:00 Montelukast Sodium (Singulair) 10 mg HS GTB Last administered on 03/03/19 21:43; Admin Dose 10 MG; Start 03/02/19 at 21:00 Pregabalin (Lyrica) 75 mg DAILY PO Last administered on 03/04/19 08:35; Admin Dose 75 MG; Start 03/03/19 at 09:00 Tiotropium [place] (Spiriva) 1 inh DAILY INH Last administered on 03/03/19 08:39; Admin Dose 1 INH; Start 03/03/19 at 09:00 Vancomycin HCl 250 ml @ 125 mls/hr Q24H IVPB Last administered on 03/04/19 09:14; Admin Dose 125 MLS/HR; Start 03/03/19 at 09:00 Nicotine (Nicoderm 14 Mg/ 24hr) 1 patch DAILY TRANSDERM ; Start 03/02/19 at 20:30 Spironolactone (Aldactone) 50 mg DAILY PO Last administered on 03/04/19at 08:35; Admin Dose 50 MG; Start 03/02/19 at 20:30 Miscellaneous Information 1 ea NOTE XX ; Start 03/02/19 at 21:30 Glucose (Glutose) 15 gm Q15M PRN PO DECREASED GLUCOSE; Start 03/02/19 at 21:30 Glucose (Glutose) 22.5 gm Q15M PRN PO DECREASED GLUCOSE; Start 03/02/19 at 21:30 Dextrose (D50w Syringe) 25 ml Q15M PRN IV DECREASED GLUCOSE; Start 03/02/19 at 21:30 Dextrose (D50w Syringe) 50 ml Q15M PRN IV DECREASED GLUCOSE; Start 03/02/19 at 21:30 Glucagon (Glucagen) 1 mg Q15M PRN IM DECREASED GLUCOSE; Start 03/02/19 at 21:30 Glucose (Glutose) 15 gm Q15M PRN BUCCAL DECREASED GLUCOSE; Start 03/02/19 at 21:30 Amlodipine Besylate (Norvasc) 10 mg DAILY PO Last administered on 03/04/19at 08:33; Admin Dose 10 MG; Start 03/03/19 at 09:00 Benazepril HCl (Lotensin) 20 mg DAILY PO Last administered on 03/04/19at 08:34; Admin Dose 20 MG; Start 03/03/19 at 09:00 Fish Oil (Fish Oil) 2,000 mg BID PO Last administered on 03/04/19at 08:33; Admin Dose 2,000 MG; Start 03/03/19 at 15:30 Metformin HCl (Glucophage) 1,000 mg BID WITH MEALS PO Last administered on 17:19; Admin Dose 1,000 MG; Start 03/03/19 at 08:00 Linagliptin (Tradjenta) 2.5 mg BID WITH MEALS PO Last administered on 03/04/19 17:19; Admin Dose 2.5 MG; Start 03/03/19 at 08:00 Piperacillin Sod/ Tazobactam Sod 100 ml @ 200 mls/hr Q8 IVPB Last administered on 03/04/19at 14:11; Admin Dose 200 MLS/HR; Start 03/02/19 at 23:00 Insulin Glargine (Lantus) 15 units HS SC ; Start 03/04/19 at 21:00 Diagnostic Test (Pha) (Accu-Chek) 1 ea 02 XX ; Start 03/05/19 at 02:00 Insulin Aspart (Novolog Insulin Pen) check q6 hours for 24 ho... Q6 SC ; Start 03/04/19 at 18:00 Allergies: Coded Allergies: No Known Allergy (Unverified , 03/02/19) Social History Smoking Status: Current every day smoker Exam/Review of Systems Exam Vitals Vital Signs Date Temp Pulse Resp B/P (MAP) Pulse Ox O2 O2 Flow FiO2 Time Delivery Rate 03/04/19 97.7 94 18 104/60 91 14:32 (75) 03/04/19 Nasal 2.0 07:47 Cannula Intake and Output 03/03/19 03/03/19 03/04/19 1414:59 22:59 06:59 IntakeIntake Total 450 ml 1340 ml BalanceBalance 450 ml 1340 ml Results Result Diagram: 03/02/19 1345 03/04/19 0535 Results 24hrs Laboratory Tests Test 03/03/19 19:43 03/04/19 02:00 03/04/19 05:35 03/04/19 06:40 Bedside Glucose 219 183 214 Blood Urea Nitrogen 21 H Creatinine 0.80 Test 03/04/19 07:55 03/04/19 17:06 Bedside Glucose 166 284 H Medications Medication Current Medications Acetaminophen (Tylenol Tab) 500 mg Q8 PRN PO MILD PAIN(1-3)OR ELEVATED TEMP; Start 03/02/19 at 20:00 Diphenhydramine HCl (Benadryl) 25 mg Q8 PRN PO ITCHING Last administered on 03/02/19at 22:08; Admin Dose 25 MG; Start 03/02/19 at 20:00 Albuterol (Ventolin Hfa) 2 puff Q4H RESP THERAPY INH Last administered on 03/03/19at 17:12; Admin Dose 2 PUFF; Start 03/02/19 at 21:00 Amitriptyline HCl (Elavil) 10 mg HS PO Last administered on 03/03/19at 21:43; Admin Dose 10 MG; Start 03/02/19 at 21:00 Aspirin (Halfprin) 81 mg DAILY PO Last administered on 03/04/19 08:33; Admin Dose 81 MG; Start 03/03/19 at 09:00 Atorvastatin Calcium (Lipitor) 40 mg HS PO Last administered on 03/03/19 21:43; Admin Dose 40 MG; Start 03/02/19 at 21:00 Bupropion HCl (Wellbutrin Xl) 150 mg DAILY PO Last administered on 03/04/19 08:33; Admin Dose 150 MG; Start 03/03/19 at 09:00 Docusate Sodium (Colace) 250 mg BID PO Last administered on 03/04/19 08:33; Admin Dose 250 MG; Start 03/02/19 at 21:00 Glimepiride (Amaryl) 1 mg AC BREAKFAST GTB Last administered on 03/04/19 06:44; Admin Dose 1 MG; Start 03/03/19 at 07:00 Montelukast Sodium (Singulair) 10 mg HS GTB Last administered on 03/03/19 21:43; Admin Dose 10 MG; Start 03/02/19 at 21:00 Pregabalin (Lyrica) 75 mg DAILY PO Last administered on 03/04/19 08:35; Admin Dose 75 MG; Start 03/03/19 at 09:00 Tiotropium [place] (Spiriva) 1 inh DAILY INH Last administered on 03/03/19 08:39; Admin Dose 1 INH; Start 03/03/19 at 09:00 Vancomycin HCl 250 ml @ 125 mls/hr Q24H IVPB Last administered on 03/04/19 09:14; Admin Dose 125 MLS/HR; Start 03/03/19 at 09:00 Nicotine (Nicoderm 14 Mg/ 24hr) 1 patch DAILY TRANSDERM ; Start 03/02/19 at 20:30 Spironolactone (Aldactone) 50 mg DAILY PO Last administered on 03/04/19 08:35; Admin Dose 50 MG; Start 03/02/19 at 20:30 Miscellaneous Information 1 ea NOTE XX ; Start 03/02/19 at 21:30 Glucose (Glutose) 15 gm Q15M PRN PO DECREASED GLUCOSE; Start 03/02/19 at 21:30 Glucose (Glutose) 22.5 gm Q15M PRN PO DECREASED GLUCOSE; Start 03/02/19 at 21:30 Dextrose (D50w Syringe) 25 ml Q15M PRN IV DECREASED GLUCOSE; Start 03/02/19 at 21:30 Dextrose (D50w Syringe) 50 ml Q15M PRN IV DECREASED GLUCOSE; Start 03/02/19 at 21:30 Glucagon (Glucagen) 1 mg Q15M PRN IM DECREASED GLUCOSE; Start 03/02/19 at 21:30 Glucose (Glutose) 15 gm Q15M PRN BUCCAL DECREASED GLUCOSE; Start 03/02/19 at 21:30 Amlodipine Besylate (Norvasc) 10 mg DAILY PO Last administered on 03/04/19 08:33; Admin Dose 10 MG; Start 03/03/19 at 09:00 Benazepril HCl (Lotensin) 20 mg DAILY PO Last administered on 03/04/19 08:34; Admin Dose 20 MG; Start 03/03/19 at 09:00 Fish Oil (Fish Oil) 2,000 mg BID PO Last administered on 03/04/19at 08:33; Admin Dose 2,000 MG; Start 03/03/19 at 15:30 Metformin HCl (Glucophage) 1,000 mg BID WITH MEALS PO Last administered on 03/04/19 17:19; Admin Dose 1,000 MG; Start 03/03/19 at 08:00 Linagliptin (Tradjenta) 2.5 mg BID WITH MEALS PO Last administered on 03/04/19 17:19; Admin Dose 2.5 MG; Start 03/03/19 at 08:00 Piperacillin Sod/ Tazobactam Sod 100 ml @ 200 mls/hr Q8 IVPB Last administered on 03/04/19at 14:11; Admin Dose 200 MLS/HR; Start 03/02/19 at 23:00 Insulin Glargine (Lantus) 15 units HS SC ; Start 03/04/19 at 21:00 Diagnostic Test (Pha) (Accu-Chek) 1 ea 02 XX ; Start 03/05/19 at 02:00 Insulin Aspart (Novolog Insulin Pen) check q6 hours for 24 ho... Q6 SC ; Start 03/04/19 at 18:00 CHRISTIANE ZAYAS MD March 04, 2019 18:10
[2019-03-04] MEDS: INSULIN ASPART [NOVOLOG] 3 ML PEN SC SCH ×2 (18:28→23:26)
[2019-03-04] MEDS: ATORVASTATIN 40 MG TAB PO SCH (20:08)
[2019-03-04] MEDS: AMITRIPTYLINE 10 MG TAB PO SCH (20:08)
[2019-03-04] MEDS: MONTELUKAST 10 MG TAB GTB SCH (20:08)
[2019-03-04] MEDS: INSULIN GLARGINE [LANTus] (100 UNITS/ML) SYG SC SCH (20:09)
[2019-03-04 20:11] VITALS: BP 103/62; PULSE 94; RESP 18
--- NOTE | 2019-03-04 22:42 | PN ---
Date/Time of Note Date/Time of Note DATE: 03/04/19 TIME: 22:37 Assessment/Plan VTE Prophylaxis Risk score (from Ns)>0 risk: 4 SCD applied (from Ns): No SCD contraindicated: other (on.) Pharmacological prophylaxis: LMWH Lines/Catheters IV [facility]from [facility] [place] [employer] line still needed: No Urinary Cath still in place: No Reason Cath still needed: urinary retention Assessment/Plan Assessment/Plan 1.Cellulitis of right lower limb-improving 2. Systolic and diastolic congestive heart failure 3. Hypertension out of control 4. COPD 5. Heavy cigarette smoker more than 50 years more than a pack a day-refuses to quit. Discussed diet negative damage of the lungs that he requires home oxygen is telling that he has a significant lung damage and to preserve with increased remaining lung he must quit smoking. Patient is refusing to do so rejected NicoDerm patch. 6. BPH 7.Dyslipidemia 8. Obesity 9. Snoring with apnea 10. Ischemic heart disease angina 11. Phosphorus 12. Osteoarthritis 13. Upper and lower back pain 14. Memory impairment 15. Diabetes mellitus type 2 most of the time of control 16.Hypoxemia 17.Unstable gate 17.incomplete data Result Diagram: 03/02/19 1345 03/04/19 0535 Results 24hrs Laboratory Tests Test 03/04/19 02:00 03/04/19 05:35 03/04/19 06:40 03/04/19 07:55 Bedside Glucose 183 214 166 Blood Urea Nitrogen 21 H Creatinine 0.80 Test 03/04/19 17:06 03/04/19 20:06 Bedside Glucose 284 H 149 Subjective 24 Hr Interval Summary Free Text/Dictation Please return in swelling of the right knee but still present. Constitutional: chills, poor po, requiring O2; No no complaints, No improved, No diaphoresis, No disoriented, No febrile, No requiring IVF, No other Eyes: discharge, redness, visual change; No no complaints, No pain, No other ENT: no complaints, pain, congestion, dysphagia, sore throat; No bleeding, No discharge, No other Respiratory: cough, pleuritic pain, shortness of breath; No no complaints, No pain, No sputum, No wheezing, No other Cardiovascular: chest pain, edema, lightheadedness, orthopenea, palpitations; No no complaints, No paroxysmal nocturnal dyspnea, No other Gastrointestinal: constipation, decreased appetite, flatus, nausea, passing stool; No no complaints, No pain, No blood, No diarrhea, No vomiting, No other Genitourinary: dysuria; No no complaints, No bleeding, No discharge, No flank pain, No hematuria, No other Musculoskeletal: back pain, bone/joint pain, neck pain; No no complaints, No restricted range of motion, No swelling, No other Skin: erythema (Upper part of the right knee and in the patellar area with less intense redness and swelling.); No no complaints, No bruising, No laceration, No pruritis, No rash, No skin lesions, No other Neurologic: dizziness, syncope; No no complaints, No confusion, No focal-weakness, No headache, No seizure, No other Endocrine: No no complaints, No polyuria, No polydypsia, No dry skin, No temp intolerance, No other Lymphatic: No no complaints, No adenopathy, No tender nodes, No lymphadema, No other Psychological: anxiety, confusion; No no complaints, No nl mood/affect, No depression, No suicidal, No other Immunologic: No no complaints, No immunodeficiency, No pruritis, No rhinitis, No urticaria, No other Exam/Review of Systems Exam Vitals Vital Signs Date Temp Pulse Resp B/P (MAP) Pulse Ox O2 O2 Flow FiO2 Time Delivery Rate 03/04/19 98.8 94 18 103/62 90 20:11 (76) 03/04/19 Nasal 2.0 20:10 Cannula Intake and Output 03/03/19 03/03/19 03/04/19 1515:00 23:00 07:00 IntakeIntake Total 450 ml 1340 ml BalanceBalance 450 ml 1340 ml Constitutional: alert, oriented, well developed, distress, frail Psych: nl mood/affect, anxiety, depression; No no complaints, No confusion, No suicidal, No other Head: normocephalic, atraumatic Eyes: EOMI, nl lids, PERRL; No nl conjunctiva, No nl sclera, No icteric, No fundi, disc, No other ENMT: No nl external ears & nose, No nl lips & teeth, No nl nasal mucosa & septum, No mucosa pink and moist, No intubated, No tympanic membranes, No other Neck: jvd, bruits, thyromegaly, nuchal rigidity; No supple, No non-tender, No masses, No other Respiratory: congested cough, crackles/rales, diminished breath sounds, wheezing; No clear to auscultation, No normal air movement, No intercostal retraction, No labored breathing, No respirations, No tactile fremitus, No other Cardiovascular: regular rate and rhythm, bruits, edema, systolic murmur; No nl pulses, No diastolic murmur, No gallop, No irregular rhythm, No jugular venous distention (JVD), No murmurs/extra sounds, No rub, No S3, No S4, No other Gastrointestinal: soft, nl liver, spleen, bowel sounds, distended, rebound or guarding; No non-tender, No ascites, No firm, No hepatomegaly, No mass, No splenomeg rafaela, No surgical scars, No tender, No other Genitourinary - Male: nl penis, nl scrotum; No CVA tenderness, No discharge, No other Musculoskeletal: joint tenderness (Right knee joint anteriorly with upper part erythema slightly bigger than quarter lower part with a nickel size possible fluid accumulation.), muscle tone, muscle weakness; No nl extremities to inspection, No nl gait and stance, No range of motion, No spine non-tender, No swelling, No other Extremities: clubbing, edema, pitting pedal edema; No normal pulses, No calf tenderness, No cyanosis, No palpable cord, No tenderness, No other Neurological: [employer]IDENT SERVICES COORDINATOR II-XII intact, confused, numbness; No nl mental status, No nl speech, No nl strength, No DTR's symmetric, No focal weakness, No lethargic, No reflexes, No unresponsive, No other Skin: nl turgor, ecchymosis; No rash or lesions, No diaphoresis, No laceration, No puncture, No other Lymph: No nl lymph nodes, No enlarged, No nontender, No other Results Results 24hrs Laboratory Tests Test 03/04/19 02:00 03/04/19 05:35 03/04/19 06:40 03/04/19 07:55 Bedside Glucose 183 214 166 Blood Urea Nitrogen 21 H Creatinine 0.80 Test 03/04/19 17:06 03/04/19 20:06 Bedside Glucose 284 H 149 Medications Medication Current Medications Acetaminophen (Tylenol Tab) 500 mg Q8 PRN PO MILD PAIN(1-3)OR ELEVATED TEMP; Start 03/02/19 at 20:00 Diphenhydramine HCl (Benadryl) 25 mg Q8 PRN PO ITCHING Last administered on 03/02/19 22:08; Admin Dose 25 MG; Start 03/02/19 at 20:00 Albuterol (Ventolin Hfa) 2 puff Q4H RESP THERAPY INH Last administered on 03/03/19 17:12; Admin Dose 2 PUFF; Start 03/02/19 at 21:00 Amitriptyline HCl (Elavil) 10 mg HS PO Last administered on 03/04/19 20:08; Admin Dose 10 MG; Start 03/02/19 at 21:00 Aspirin (Halfprin) 81 mg DAILY PO Last administered on 03/04/19 08:33; Admin Dose 81 MG; Start 03/03/19 at 09:00 Atorvastatin Calcium (Lipitor) 40 mg HS PO Last administered on 03/04/19 20:08; Admin Dose 40 MG; Start 03/02/19 at 21:00 Bupropion HCl (Wellbutrin Xl) 150 mg DAILY PO Last administered on 03/04/19 08:33; Admin Dose 150 MG; Start 03/03/19 at 09:00 Docusate Sodium (Colace) 250 mg BID PO Last administered on 03/04/19 20:08; Admin Dose 250 MG; Start 03/02/19 at 21:00 Glimepiride (Amaryl) 1 mg AC BREAKFAST GTB Last administered on 03/04/19 06:44; Admin Dose 1 MG; Start 03/03/19 at 07:00 Montelukast Sodium (Singulair) 10 mg HS GTB Last administered on 03/04/19 20:08; Admin Dose 10 MG; Start 03/02/19 at 21:00 Pregabalin (Lyrica) 75 mg DAILY PO Last administered on 03/04/19 08:35; Admin Dose 75 MG; Start 03/03/19 at 09:00 Tiotropium [place] (Spiriva) 1 inh DAILY INH Last administered on 03/03/19 08:39; Admin Dose 1 INH; Start 03/03/19 at 09:00 Vancomycin HCl 250 ml @ 125 mls/hr Q24H IVPB Last administered on 03/04/19at 09:14; Admin Dose 125 MLS/HR; Start 03/03/19 at 09:00 Nicotine (Nicoderm 14 Mg/ 24hr) 1 patch DAILY TRANSDERM ; Start 03/02/19 at 20:30 Spironolactone (Aldactone) 50 mg DAILY PO Last administered on 03/04/19at 08:35; Admin Dose 50 MG; Start 03/02/19 at 20:30 Miscellaneous Information 1 ea NOTE XX ; Start 03/02/19 at 21:30 Glucose (Glutose) 15 gm Q15M PRN PO DECREASED GLUCOSE; Start 03/02/19 at 21:30 Glucose (Glutose) 22.5 gm Q15M PRN PO DECREASED GLUCOSE; Start 03/02/19 at 21:30 Dextrose (D50w Syringe) 25 ml Q15M PRN IV DECREASED GLUCOSE; Start 03/02/19 at 21:30 Dextrose (D50w Syringe) 50 ml Q15M PRN IV DECREASED GLUCOSE; Start 03/02/19 at 21:30 Glucagon (Glucagen) 1 mg Q15M PRN IM DECREASED GLUCOSE; Start 03/02/19 at 21:30 Glucose (Glutose) 15 gm Q15M PRN BUCCAL DECREASED GLUCOSE; Start 03/02/19 at 21:30 Amlodipine Besylate (Norvasc) 10 mg DAILY PO Last administered on 03/04/19at 08:33; Admin Dose 10 MG; Start 03/03/19 at 09:00 Benazepril HCl (Lotensin) 20 mg DAILY PO Last administered on 03/04/19at 08:34; Admin Dose 20 MG; Start 03/03/19 at 09:00 Fish Oil (Fish Oil) 2,000 mg BID PO Last administered on 03/04/19at 20:08; Admin Dose 2,000 MG; Start 03/03/19 at 15:30 Metformin HCl (Glucophage) 1,000 mg BID WITH MEALS PO Last administered on 03/04/19at 17:19; Admin Dose 1,000 MG; Start 03/03/19 at 08:00 Linagliptin (Tradjenta) 2.5 mg BID WITH MEALS PO Last administered on 03/04/19at 17:19; Admin Dose 2.5 MG; Start 03/03/19 at 08:00 Piperacillin Sod/ Tazobactam Sod 100 ml @ 200 mls/hr Q8 IVPB Last administered on 03/04/19at 21:19; Admin Dose 200 MLS/HR; Start 03/02/19 at 23:00 Insulin Glargine (Lantus) 15 units HS SC Last administered on 03/04/19at 20:09; Admin Dose 15 UNITS; Start 03/04/19 at 21:00 Diagnostic Test (Pha) (Accu-Chek) 1 ea 02 XX ; Start 03/05/19 at 02:00 Insulin Aspart (Novolog Insulin Pen) check q6 hours for 24 ho... Q6 SC Last administered on 03/04/19at 18:28; Admin Dose 8 UNIT; Start 03/04/19 at 18:00 LUIGI CHOWDHURY MD March 04, 2019 22:41
[2019-03-05] MEDS: ALBUTEROL HFA 8 GM INHALER INH SCH ×6 (01:00→20:22)
[2019-03-05] MEDS ORDERED: ACCU-CHEK XX SCH (02:00)
[2019-03-05 02:23] VITALS: BP 108/59; PULSE 75; RESP 18
[2019-03-05] MEDS: PIPER-TAZO 3.375 GM IV (PMX) 100 ML IVPB SCH ×3 (05:23→22:07)
[2019-03-05] MEDS: INSULIN ASPART [NOVOLOG] 3 ML PEN SC SCH ×3 (05:23→17:19)
[2019-03-05 07:36] VITALS: BP 102/57; PULSE 83; RESP 16
[2019-03-05] MEDS: DOCUSATE SODIUM 250 MG CAP PO SCH ×2 (08:07→20:05)
[2019-03-05] MEDS: metFORMIN 500 MG TAB PO SCH ×2 (08:07→17:17)
[2019-03-05] MEDS: FISH OIL 1,000 MG CAP PO SCH ×2 (08:08→20:06)
[2019-03-05] MEDS: LINAGLIPTIN 5 MG TABLET PO SCH ×2 (08:08→17:17)
[2019-03-05] MEDS: SPIRONOLACTONE 50 MG TAB PO SCH (08:09)
[2019-03-05] MEDS: GLIMEPIRIDE 2 MG TAB GTB SCH (08:09)
[2019-03-05] MEDS: BUPROPION (XL) 150 MG TAB PO SCH (08:09)
[2019-03-05] MEDS: PREGABALIN 75 MG CAP PO SCH (08:09)
[2019-03-05] MEDS: AMLODIPINE 10 MG TAB PO SCH (08:10)
[2019-03-05] MEDS: BENAZEPRIL 20 MG TAB PO SCH (08:10)
[2019-03-05] MEDS: ASPIRIN (EC) 81 MG TAB PO SCH (08:11)
[2019-03-05] MEDS: NICOTINE (14 MG/24 HR) PATCH TRANSDERM SCH (08:14)
[2019-03-05] MEDS: TIOTROPIUM 18 MCG CAPSULE INHA DEV INH SCH (08:14)
[2019-03-05] MEDS: VANCOMYCIN 1 GM (PMX) 250 ML IVPB SCH (09:03)
--- NOTE | 2019-03-05 09:16 | CONS ---
Assessment/Plan Assessment/Plan Hospital Course (Demo Recall) Right lower extremity cellulitis - improving on intravenous antibiotics Congestive heart failure - left ventricular function unknown, clinically compensated Coronary artery disease - details unknown,no symptoms Hypertension Dyslipidemia Diabetes mellitus Chronic obstructive pulmonary disease Benign prostate hyperplasia -check echo -continue aspirin 81mg daily -continue atorvastatin 40mg daily -continue amlodipine 10mg daily, benazepril 20mg daily, spironolactone 50mg daily Consultation Date/Type/Reason Admit Date/Time March 02, 2019 at 13:49 Initial Consult Date Type of Consult Cardiology Date/Time of Note DATE: 03/05/19 TIME: 09:14 24 HR Interval Summary Free Text/Dictation Cellulitis improving. No complaints. No SOB or chest pain. Denies CAD/IN/CHF. Not interested in quitting smoking Exam/Review of Systems Vital Signs Vitals Vital Signs Date Temp Pulse Resp B/P (MAP) Pulse Ox O2 O2 Flow FiO2 Time Delivery Rate 03/05/19 98.2 83 16 102/57 91 Room Air 07:36 (72) 03/04/19 2.0 20:10 Intake and Output 03/04/19 03/04/19 03/05/19 1515:00 23:00 07:00 IntakeIntake Total 800 ml 610 ml 100 ml BalanceBalance 800 ml 610 ml 100 ml Exam Constitutional: alert, oriented Psych: no complaints, nl mood/affect Neck: No jvd Respiratory: wheezing; No clear to auscultation Cardiovascular: regular rate and rhythm, edema (trace on left) Extremities: other (mild erythema right leg ) Neurological: nl mental status, nl speech Labs Result Diagram: 03/02/19 1345 03/04/19 0535 Results 24hrs Laboratory Tests Test 03/04/19 17:06 03/04/19 20:06 03/04/19 23:23 03/05/19 05:19 Bedside Glucose 284 H 149 185 166 Test 03/05/19 08:12 Bedside Glucose 153 Medications Medications Current Medications Acetaminophen (Tylenol Tab) 500 mg Q8 PRN PO MILD PAIN(1-3)OR ELEVATED TEMP; Start 03/02/19 at 20:00 Diphenhydramine HCl (Benadryl) 25 mg Q8 PRN PO ITCHING Last administered on 03/02/19at 22:08; Admin Dose 25 MG; Start 03/02/19 at 20:00 Albuterol (Ventolin Hfa) 2 puff Q4H RESP THERAPY INH Last administered on 03/05/19 05:23; Admin Dose 2 PUFF; Start 03/02/19 at 21:00 Amitriptyline HCl (Elavil) 10 mg HS PO Last administered on 03/04/19 20:08; Admin Dose 10 MG; Start 03/02/19 at 21:00 Aspirin (Halfprin) 81 mg DAILY PO Last administered on 03/05/19 08:11; Admin Dose 81 MG; Start 03/03/19 at 09:00 Atorvastatin Calcium (Lipitor) 40 mg HS PO Last administered on 03/04/19 20:08; Admin Dose 40 MG; Start 03/02/19 at 21:00 Bupropion HCl (Wellbutrin Xl) 150 mg DAILY PO Last administered on 03/05/19 08:09; Admin Dose 150 MG; Start 03/03/19 at 09:00 Docusate Sodium (Colace) 250 mg BID PO Last administered on 03/05/19 08:07; Admin Dose 250 MG; Start 03/02/19 at 21:00 Glimepiride (Amaryl) 1 mg AC BREAKFAST GTB Last administered on 03/05/19 08:09; Admin Dose 1 MG; Start 03/03/19 at 07:00 Montelukast Sodium (Singulair) 10 mg HS GTB Last administered on 03/04/19 20:08; Admin Dose 10 MG; Start 03/02/19 at 21:00 Pregabalin (Lyrica) 75 mg DAILY PO Last administered on 03/05/19 08:09; Admin Dose 75 MG; Start 03/03/19 at 09:00 Tiotropium [place] (Spiriva) 1 inh DAILY INH Last administered on 03/03/19 08:39; Admin Dose 1 INH; Start 03/03/19 at 09:00 Vancomycin HCl 250 ml @ 125 mls/hr Q24H IVPB Last administered on 03/05/19 09:03; Admin Dose 125 MLS/HR; Start 03/03/19 at 09:00 Nicotine (Nicoderm 14 Mg/ 24hr) 1 patch DAILY TRANSDERM ; Start 03/02/19 at 20:30 Spironolactone (Aldactone) 50 mg DAILY PO Last administered on 03/05/19 08:09; Admin Dose 50 MG; Start 03/02/19 at 20:30 Miscellaneous Information 1 ea NOTE XX ; Start 03/02/19 at 21:30 Glucose (Glutose) 15 gm Q15M PRN PO DECREASED GLUCOSE; Start 03/02/19 at 21:30 Glucose (Glutose) 22.5 gm Q15M PRN PO DECREASED GLUCOSE; Start 03/02/19 at 21:30 Dextrose (D50w Syringe) 25 ml Q15M PRN IV DECREASED GLUCOSE; Start 03/02/19 at 21:30 Dextrose (D50w Syringe) 50 ml Q15M PRN IV DECREASED GLUCOSE; Start 03/02/19 at 21:30 Glucagon (Glucagen) 1 mg Q15M PRN IM DECREASED GLUCOSE; Start 03/02/19 at 21:30 Glucose (Glutose) 15 gm Q15M PRN BUCCAL DECREASED GLUCOSE; Start 03/02/19 at 21:30 Amlodipine Besylate (Norvasc) 10 mg DAILY PO Last administered on 03/05/19 08:10; Admin Dose 10 MG; Start 03/03/19 at 09:00 Benazepril HCl (Lotensin) 20 mg DAILY PO Last administered on 03/05/19 08:10; Admin Dose 20 MG; Start 03/03/19 at 09:00 Fish Oil (Fish Oil) 2,000 mg BID PO Last administered on 03/05/19 08:08; Admin Dose 2,000 MG; Start 03/03/19 at 15:30 Metformin HCl (Glucophage) 1,000 mg BID WITH MEALS PO Last administered on 03/05/19 08:07; Admin Dose 1,000 MG; Start 03/03/19 at 08:00 Linagliptin (Tradjenta) 2.5 mg BID WITH MEALS PO Last administered on 03/05/19 08:08; Admin Dose 2.5 MG; Start 03/03/19 at 08:00 Piperacillin Sod/ Tazobactam Sod 100 ml @ 200 mls/hr Q8 IVPB Last administered on 03/05/19 05:23; Admin Dose 200 MLS/HR; Start 03/02/19 at 23:00 Insulin Glargine (Lantus) 15 units HS SC Last administered on 5/19/19at 20:09; Admin Dose 15 UNITS; Start 03/04/19 at 21:00 Diagnostic Test (Pha) (Accu-Chek) 1 ea 02 XX ; Start 03/05/19 at 02:00 Insulin Aspart (Novolog Insulin Pen) check q6 hours for 24 ho... Q6 SC Last administered on 03/05/19at 05:23; Admin Dose 2 UNIT; Start 03/04/19 at 18:00 [facility] March 05, 2019 09:16
--- NOTE | 2019-03-05 12:37 | CONS ---
Assessment/Plan Assessment/Plan Hospital Course (Demo Recall) 1. RLE cellulitis 2. Hx of CHF 3. Hx of copd 4. hx of DM poorly controlled R: cont. current abx for now--- agree with discharge with IV Vanco x 7days consider picc line we would be happy to see in office for f/u mrsa nasal screen hiv screen monitor crcl and plts closely f/u bcxs Consultation Date/Type/Reason Admit Date/Time March 02, 2019 at 13:49 Date of Consultation: March 05, 2019 Type of Consult ID Reason for Consultation ABX RECS, LOWER EXTREMITY CELLULITIS Requesting Provider: LUIGI CHOWDHURY MD Date/Time of Note DATE: 03/05/19 TIME: 12:33 Hx of Present Illness 68 YO male with pmh of htn, dm, copd, bph, dyslipidemia, cad, chf, admitted for progressive RLE cellulitis over last 3-4 days. He has been started on empiric vanco/zosyn with significant clinical improvement. Constitutional: no complaints, improved Eyes: no complaints ENT: no complaints Respiratory: no complaints Cardiovascular: no complaints Gastrointestinal: no complaints Genitourinary: no complaints Musculoskeletal: no complaints Skin: no complaints Neurologic: no complaints Endocrine: no complaints Past Medical History Home Meds Reported Medications Bupropion Hcl* (Bupropion XL*) 150 Mg Tab.er.24h, 150 MG PO DAILY, TAB.SA 03/02/19 Icosapent Ethyl (VASCEPA) 1 Gm Capsule, 2 GM PO BID, CAP 03/02/19 Albuterol Sulfate* (Ventolin HFA*) 18 Gm Hfa.aer.ad, 2 PUFF INHALATION Q4H, #1 INHALER 03/02/19 Docusate Sodium* (Colace*) 250 Mg Capsule, 250 MG PO BID, #60 CAP 03/02/19 Tiotropium [place]* (Spiriva*) 18 Mcg Cap.w.dev, 1 CAP INHALATION DAILY, #30 CAP 03/02/19 Sitagliptin Phos/Metformin HCl (Janumet 50-1,000 mg Tablet) 1 Each Tablet, 1 EACH PO BID, TAB 03/02/19 Pregabalin* (Lyrica*) 75 Mg Capsule, 75 MG PO DAILY, CAP 03/02/19 Amlodipine Besylate/Benazepril (Amlodipine-Benazepril 10-20 mg) 1 Each Capsule, 1 EACH PO DAILY, CAP 03/02/19 Amitriptyline Hcl* (Amitriptyline Hcl*) 10 Mg Tablet, 10 MG PO QHS, #30 TAB 03/02/19 Montelukast Sodium* (Montelukast Sodium*) 10 Mg Tablet, 10 MG PO QHS, #30 TAB 03/02/19 Atorvastatin* (Atorvastatin*) 40 Mg Tablet, 40 MG PO QHS, #30 TAB 03/02/19 Glimepiride* (Glimepiride*) 1 Mg Tablet, 1 MG PO WITH BREAKFAST, TAB 03/02/19 Aspirin* (Aspirin* EC) 81 Mg Tablet.dr, 81 MG PO DAILY, TAB 03/02/19 Ergocalciferol (Vitamin D2) (VITAMIN D2) 50,000 Unit Capsule, 43171 UNIT PO Q 14D, CAP 03/02/19 Medications Current Medications Acetaminophen (Tylenol Tab) 500 mg Q8 PRN PO MILD PAIN(1-3)OR ELEVATED TEMP; Start 03/02/19 at 20:00 Diphenhydramine HCl (Benadryl) 25 mg Q8 PRN PO ITCHING Last administered on 03/02/19at 22:08; Admin Dose 25 MG; Start 03/02/19 at 20:00 Albuterol (Ventolin Hfa) 2 puff Q4H RESP THERAPY INH Last administered on 03/05/19at 05:23; Admin Dose 2 PUFF; Start 03/02/19 at 21:00 Amitriptyline HCl (Elavil) 10 mg HS PO Last administered on 03/04/19at 20:08; Admin Dose 10 MG; Start 03/02/19 at 21:00 Aspirin (Halfprin) 81 mg DAILY PO Last administered on 03/05/19at 08:11; Admin Dose 81 MG; Start 03/03/19 at 09:00 Atorvastatin Calcium (Lipitor) 40 mg HS PO Last administered on 03/04/19at 20:08 ; Admin Dose 40 MG; Start 03/02/19 at 21:00 Bupropion HCl (Wellbutrin Xl) 150 mg DAILY PO Last administered on 03/05/19at 08:09; Admin Dose 150 MG; Start 03/03/19 at 09:00 Docusate Sodium (Colace) 250 mg BID PO Last administered on 03/05/19 08:07; Admin Dose 250 MG; Start 03/02/19 at 21:00 Glimepiride (Amaryl) 1 mg AC BREAKFAST GTB Last administered on 03/05/19 08:09; Admin Dose 1 MG; Start 03/03/19 at 07:00 Montelukast Sodium (Singulair) 10 mg HS GTB Last administered on 03/04/19 20:08; Admin Dose 10 MG; Start 03/02/19 at 21:00 Pregabalin (Lyrica) 75 mg DAILY PO Last administered on 03/05/19 08:09; Admin Dose 75 MG; Start 03/03/19 at 09:00 Tiotropium [place] (Spiriva) 1 inh DAILY INH Last administered on 03/03/19 08:39; Admin Dose 1 INH; Start 03/03/19 at 09:00 Vancomycin HCl 250 ml @ 125 mls/hr Q24H IVPB Last administered on 03/05/19 09:03; Admin Dose 125 MLS/HR; Start 03/03/19 at 09:00 Nicotine (Nicoderm 14 Mg/ 24hr) 1 patch DAILY TRANSDERM ; Start 03/02/19 at 20:30 Spironolactone (Aldactone) 50 mg DAILY PO Last administered on 03/05/19 08:09; Admin Dose 50 MG; Start 03/02/19 at 20:30 Miscellaneous Information 1 ea NOTE XX ; Start 03/02/19 at 21:30 Glucose (Glutose) 15 gm Q15M PRN PO DECREASED GLUCOSE; Start 03/02/19 at 21:30 Glucose (Glutose) 22.5 gm Q15M PRN PO DECREASED GLUCOSE; Start 03/02/19 at 21:30 Dextrose (D50w Syringe) 25 ml Q15M PRN IV DECREASED GLUCOSE; Start 03/02/19 at 21:30 Dextrose (D50w Syringe) 50 ml Q15M PRN IV DECREASED GLUCOSE; Start 03/02/19 at 21:30 Glucagon (Glucagen) 1 mg Q15M PRN IM DECREASED GLUCOSE; Start 03/02/19 at 21:30 Glucose (Glutose) 15 gm Q15M PRN BUCCAL DECREASED GLUCOSE; Start 03/02/19 at 21:30 Amlodipine Besylate (Norvasc) 10 mg DAILY PO Last administered on 03/05/19 08:10; Admin Dose 10 MG; Start 03/03/19 at 09:00 Benazepril HCl (Lotensin) 20 mg DAILY PO Last administered on 03/05/19 08:10; Admin Dose 20 MG; Start 03/03/19 at 09:00 Fish Oil (Fish Oil) 2,000 mg BID PO Last administered on 03/05/19 08:08; Admin Dose 2,000 MG; Start 03/03/19 at 15:30 Metformin HCl (Glucophage) 1,000 mg BID WITH MEALS PO Last administered on 03/05/19 08:07; Admin Dose 1,000 MG; Start 03/03/19 at 08:00 Linagliptin (Tradjenta) 2.5 mg BID WITH MEALS PO Last administered on 03/05/19 08:08; Admin Dose 2.5 MG; Start 03/03/19 at 08:00 Piperacillin Sod/ Tazobactam Sod 100 ml @ 200 mls/hr Q8 IVPB Last administered on 03/05/19 05:23; Admin Dose 200 MLS/HR; Start 03/02/19 at 23:00 Insulin Glargine (Lantus) 15 units HS SC Last administered on 03/04/19 20:09; Admin Dose 15 UNITS; Start 03/04/19 at 21:00 Diagnostic Test (Pha) (Accu-Chek) 1 ea 02 XX ; Start 03/05/19 at 02:00 Insulin Aspart (Novolog Insulin Pen) check q6 hours for 24 ho... Q6 SC Last administered on 03/05/19 12:13; Admin Dose 2 UNIT; Start 03/04/19 at 18:00 Allergies: Coded Allergies: No Known Allergy (Unverified , 03/02/19) Social History Smoking Status: Current every day smoker Exam/Review of Systems Exam Vitals Vital Signs Date Temp Pulse Resp B/P (MAP) Pulse Ox O2 O2 Flow FiO2 Time Delivery Rate 03/05/19 Nasal 2.0 10:08 Cannula 03/05/19 98.2 83 16 102/57 91 07:36 (72) Intake and Output 03/04/19 03/04/19 03/05/19 1414:59 22:59 06:59 IntakeIntake Total 800 ml 610 ml 100 ml BalanceBalance 800 ml 610 ml 100 ml Constitutional: alert, oriented, well developed Psych: no complaints, nl mood/affect Head: normocephalic, atraumatic Eyes: nl conjunctiva, EOMI, nl lids, nl sclera, PERRL ENMT: nl external ears & nose, nl lips & teeth, nl nasal mucosa & septum Neck: supple, non-tender Respiratory: clear to auscultation, normal air movement Cardiovascular: regular rate and rhythm, nl pulses Neurological: SECURITY SYSTEM ENGINEER II-XII intact, nl mental status, nl speech, nl strength Skin: other (significant swelling of knee with erythematous changes, hardening) Results Result Diagram: 03/02/19 1345 03/04/19 0535 Results 24hrs Laboratory Tests Test 03/04/19 17:06 03/04/19 20:06 03/04/19 23:23 03/05/19 05:19 Bedside Glucose 284 H 149 185 166 Test 03/05/19 08:12 03/05/19 12:11 Bedside Glucose 153 141 Medications Medication Current Medications Acetaminophen (Tylenol Tab) 500 mg Q8 PRN PO MILD PAIN(1-3)OR ELEVATED TEMP; Start 03/02/19 at 20:00 Diphenhydramine HCl (Benadryl) 25 mg Q8 PRN PO ITCHING Last administered on 03/02/19at 22:08; Admin Dose 25 MG; Start 03/02/19 at 20:00 Albuterol (Ventolin Hfa) 2 puff Q4H RESP THERAPY INH Last administered on 03/05/19at 05:23; Admin Dose 2 PUFF; Start 03/02/19 at 21:00 Amitriptyline HCl (Elavil) 10 mg HS PO Last administered on 03/04/19at 20:08; Admin Dose 10 MG; Start 03/02/19 at 21:00 Aspirin (Halfprin) 81 mg DAILY PO Last administered on 03/05/19at 08:11; Admin D ose 81 MG; Start 03/03/19 at 09:00 Atorvastatin Calcium (Lipitor) 40 mg HS PO Last administered on 03/04/19at 20:08; Admin Dose 40 MG; Start 03/02/19 at 21:00 Bupropion HCl (Wellbutrin Xl) 150 mg DAILY PO Last administered on 03/05/19 08:09; Admin Dose 150 MG; Start 03/03/19 at 09:00 Docusate Sodium (Colace) 250 mg BID PO Last administered on 03/05/19 08:07; Admin Dose 250 MG; Start 03/02/19 at 21:00 Glimepiride (Amaryl) 1 mg AC BREAKFAST GTB Last administered on 03/05/19 08:09; Admin Dose 1 MG; Start 03/03/19 at 07:00 Montelukast Sodium (Singulair) 10 mg HS GTB Last administered on 03/04/19 20:08; Admin Dose 10 MG; Start 03/02/19 at 21:00 Pregabalin (Lyrica) 75 mg DAILY PO Last administered on 03/05/19 08:09; Admin Dose 75 MG; Start 03/03/19 at 09:00 Tiotropium [place] (Spiriva) 1 inh DAILY INH Last administered on 03/03/19 08:39; Admin Dose 1 INH; Start 03/03/19 at 09:00 Vancomycin HCl 250 ml @ 125 mls/hr Q24H IVPB Last administered on 03/05/19 09:03; Admin Dose 125 MLS/HR; Start 03/03/19 at 09:00 Nicotine (Nicoderm 14 Mg/ 24hr) 1 patch DAILY TRANSDERM ; Start 03/02/19 at 20:30 Spironolactone (Aldactone) 50 mg DAILY PO Last administered on 03/05/19 08:09; Admin Dose 50 MG; Start 03/02/19 at 20:30 Miscellaneous Information 1 ea NOTE XX ; Start 03/02/19 at 21:30 Glucose (Glutose) 15 gm Q15M PRN PO DECREASED GLUCOSE; Start 03/02/19 at 21:30 Glucose (Glutose) 22.5 gm Q15M PRN PO DECREASED GLUCOSE; Start 03/02/19 at 21:30 Dextrose (D50w Syringe) 25 ml Q15M PRN IV DECREASED GLUCOSE; Start 03/02/19 at 21:30 Dextrose (D50w Syringe) 50 ml Q15M PRN IV DECREASED GLUCOSE; Start 03/02/19 at 21:30 Glucagon (Glucagen) 1 mg Q15M PRN IM DECREASED GLUCOSE; Start 03/02/19 at 21:30 Glucose (Glutose) 15 gm Q15M PRN BUCCAL DECREASED GLUCOSE; Start 03/02/19 at 21:30 Amlodipine Besylate (Norvasc) 10 mg DAILY PO Last administered on 03/05/19 08:10; Admin Dose 10 MG; Start 03/03/19 at 09:00 Benazepril HCl (Lotensin) 20 mg DAILY PO Last administered on 03/05/19 08:10; Admin Dose 20 MG; Start 03/03/19 at 09:00 Fish Oil (Fish Oil) 2,000 mg BID PO Last administered on 03/05/19 08:08; Admin Dose 2,000 MG; Start 03/03/19 at 15:30 Metformin HCl (Glucophage) 1,000 mg BID WITH MEALS PO Last administered on 03/05/19 08:07; Admin Dose 1,000 MG; Start 03/03/19 at 08:00 Linagliptin (Tradjenta) 2.5 mg BID WITH MEALS PO Last administered on 03/05/19 08:08; Admin Dose 2.5 MG; Start 03/03/19 at 08:00 Piperacillin Sod/ Tazobactam Sod 100 ml @ 200 mls/hr Q8 IVPB Last administered on 03/05/19 05:23; Admin Dose 200 MLS/HR; Start 03/02/19 at 23:00 Insulin Glargine (Lantus) 15 units HS SC Last administered on 03/04/19 20:09; Admin Dose 15 UNITS; Start 03/04/19 at 21:00 Diagnostic Test (Pha) (Accu-Chek) 1 ea 02 XX ; Start 03/05/19 at 02:00 Insulin Aspart (Novolog Insulin Pen) check q6 hours for 24 ho... Q6 SC Last administered on 03/05/19 12:13; Admin Dose 2 UNIT; Start 03/04/19 at 18:00 CHRISTIANE ZAYAS MD March 05, 2019 12:37
[2019-03-05 14:23] VITALS: BP 98/58; PULSE 84; RESP 16
--- NOTE | 2019-03-05 14:32 | PN ---
Date/Time of Note Date/Time of Note DATE: 03/05/19 TIME: 14:29 Assessment/Plan VTE Prophylaxis Risk score (from Ns)>0 risk: 4 SCD applied (from Ns): No SCD contraindicated: other (on.) Pharmacological prophylaxis: LMWH Lines/Catheters IV [facility]ter [facility]from [facility] [place] line still needed: No Urinary Cath still in place: No Reason Cath still needed: urinary retention Assessment/Plan Assessment/Plan 1.Cellulitis of right lower limb-improving but not sufficent to d/c. 2. Systolic and diastolic congestive heart failure 3. Hypertension out of control 4. COPD 5. Heavy cigarette smoker more than 50 years more than a pack a day-refuses to quit. Discussed diet negative damage of the lungs that he requires home oxygen is telling that he has a significant lung damage and to preserve with increased remaining lung he must quit smoking. Patient is refusing to do so rejected NicoDerm patch. 6. BPH 7.Dyslipidemia 8. Obesity 9. Snoring with apnea 10. Ischemic heart disease angina 11. Phosphorus 12. Osteoarthritis 13. Upper and lower back pain 14. Memory impairment 15. Diabetes mellitus type 2 most of the time of control 16.Hypoxemia 17.Unstable gate 17.incomplete data Result Diagram: 03/02/19 1345 03/04/19 0535 Results 24hrs Laboratory Tests Test 03/04/19 17:06 03/04/19 20:06 03/04/19 23:23 03/05/19 05:19 Bedside Glucose 284 H 149 185 166 Test 03/05/19 08:12 03/05/19 12:11 Bedside Glucose 153 141 Subjective 24 Hr Interval Summary Free Text/Dictation I want to go home. Constitutional: improved, requiring O2; No no complaints, No chills, No diaphoresis, No disoriented, No febrile, No poor po, No requiring IVF, No other Eyes: No no complaints, No pain, No discharge, No redness, No visual change, No other ENT: No no complaints, No bleeding, No pain, No congestion, No discharge, No dysphagia, No sore throat, No other Respiratory: cough, pleuritic pain, shortness of breath, wheezing; No no complaints, No pain, No sputum, No other Cardiovascular: edema, lightheadedness, orthopenea, paroxysmal nocturnal dyspnea; No no complaints, No chest pain, No palpitations, No other Gastrointestinal: constipation, nausea, passing stool; No no complaints, No pain, No blood, No decreased appetite, No diarrhea, No flatus, No vomiting, No other Genitourinary: No no complaints, No bleeding, No dysuria, No discharge, No flank pain, No hematuria, No other Musculoskeletal: back pain, bone/joint pain; No no complaints, No neck pain, No restricted range of motion, No swelling, No other Skin: pruritis, rash; No no complaints, No bruising, No erythema, No laceration, No skin lesions, No other Neurologic: dizziness, headache, syncope; No no complaints, No confusion, No focal-weakness, No seizure, No other Endocrine: polyuria; No no complaints, No polydypsia, No dry skin, No temp intolerance, No other Lymphatic: adenopathy Psychological: No no complaints, No nl mood/affect, No anxiety, No confusion, No depression, No suicidal, No other Exam/Review of Systems Exam Vitals Vital Signs Date Temp Pulse Resp B/P (MAP) Pulse Ox O2 O2 Flow FiO2 Time Delivery Rate 03/05/19 98.0 84 16 98/58 (71) 93 Room Air 14:23 03/05/19 2.0 10:08 Intake and Output 03/04/19 03/04/19 03/05/19 1515:00 23:00 07:00 IntakeIntake Total 800 ml 610 ml 100 ml BalanceBalance 800 ml 610 ml 100 ml Constitutional: alert, oriented, well developed, distress, frail, obese; No non-verbal, No other Psych: anxiety; No no complaints, No nl mood/affect, No confusion, No depression, No suicidal, No other Head: normocephalic, atraumatic; No lacerations, No hematomas, No other Eyes: EOMI, nl lids; No nl conjunctiva, No nl sclera, No PERRL, No icteric, No fundi, disc, No other ENMT: mucosa pink and moist; No nl external ears & nose, No nl lips & teeth, No nl nasal mucosa & septum, No intubated, No tympanic membranes, No other Neck: jvd, bruits, thyromegaly; No supple, No non-tender, No masses, No nuchal rigidity, No other Respiratory: congested cough, crackles/rales, wheezing; No clear to auscultation, No normal air movement, No diminished breath sounds, No intercostal retraction, No labored breathing, No respirations, No tactile fremitus, No other Cardiovascular: regular rate and rhythm, systolic murmur; No nl pulses, No bruits, No diastolic murmur, No edema, No gallop, No irregul ar rhythm, No jugular venous distention (JVD), No murmurs/extra sounds, No rub, No S3, No S4, No other Gastrointestinal: soft, bowel sounds; No nl liver, spleen, No non-tender, No ascites, No distended, No firm, No hepatomegaly, No mass, No rebound or guarding, No splenomegaly, No surgical scars, No tender, No other Genitourinary - Male: nl penis, nl scrotum; No CVA tenderness, No discharge, No other Musculoskeletal: joint tenderness, swelling (and erythema of the right knee superior and anteriorly with decreased swelling.); No nl extremities to inspection, No nl gait and stance, No muscle tone, No muscle weakness, No range of motion, No spine non-tender, No other Results Results 24hrs Laboratory Tests Test 03/04/19 17:06 03/04/19 20:06 03/04/19 23:23 03/05/19 05:19 Bedside Glucose 284 H 149 185 166 Test 03/05/19 08:12 03/05/19 12:11 Bedside Glucose 153 141 Medications Medication Current Medications Acetaminophen (Tylenol Tab) 500 mg Q8 PRN PO MILD PAIN(1-3)OR ELEVATED TEMP; Start 03/02/19 at 20:00 Diphenhydramine HCl (Benadryl) 25 mg Q8 PRN PO ITCHING Last administered on 03/02/19at 22:08; Admin Dose 25 MG; Start 03/02/19 at 20:00 Albuterol (Ventolin Hfa) 2 puff Q4H RESP THERAPY INH Last administered on 03/05/19at 05:23; Admin Dose 2 PUFF; Start 03/02/19 at 21:00 Amitriptyline HCl (Elavil) 10 mg HS PO Last administered on 03/04/19at 20:08; Admin Dose 10 MG; Start 03/02/19 at 21:00 Aspirin (Halfprin) 81 mg DAILY PO Last administered on 03/05/19 08:11; Admin Dose 81 MG; Start 03/03/19 at 09:00 Atorvastatin Calcium (Lipitor) 40 mg HS PO Last administered on 03/04/19 20:08; Admin Dose 40 MG; Start 03/02/19 at 21:00 Bupropion HCl (Wellbutrin Xl) 150 mg DAILY PO Last administered on 03/05/19 08:09; Admin Dose 150 MG; Start 03/03/19 at 09:00 Docusate Sodium (Colace) 250 mg BID PO Last administered on 03/05/19 08:07; Admin Dose 250 MG; Start 03/02/19 at 21:00 Glimepiride (Amaryl) 1 mg AC BREAKFAST GTB Last administered on 03/05/19 08:09; Admin Dose 1 MG; Start 03/03/19 at 07:00 Montelukast Sodium (Singulair) 10 mg HS GTB Last administered on 03/04/19 20:08; Admin Dose 10 MG; Start 03/02/19 at 21:00 Pregabalin (Lyrica) 75 mg DAILY PO Last administered on 03/05/19 08:09; Admin Dose 75 MG; Start 03/03/19 at 09:00 Tiotropium [place] (Spiriva) 1 inh DAILY INH Last administered on 03/03/19 08:39; Admin Dose 1 INH; Start 03/03/19 at 09:00 Vancomycin HCl 250 ml @ 125 mls/hr Q24H IVPB Last administered on 03/05/19 09:03; Admin Dose 125 MLS/HR; Start 03/03/19 at 09:00 Nicotine (Nicoderm 14 Mg/ 24hr) 1 patch DAILY TRANSDERM ; Start 03/02/19 at 20:30 Spironolactone (Aldactone) 50 mg DAILY PO Last administered on 03/05/19 08:09; Admin Dose 50 MG; Start 03/02/19 at 20:30 Miscellaneous Information 1 ea NOTE XX ; Start 03/02/19 at 21:30 Glucose (Glutose) 15 gm Q15M PRN PO DECREASED GLUCOSE; Start 03/02/19 at 21:30 Glucose (Glutose) 22.5 gm Q15M PRN PO DECREASED GLUCOSE; Start 03/02/19 at 21:30 Dextrose (D50w Syringe) 25 ml Q15M PRN IV DECREASED GLUCOSE; Start 03/02/19 at 21:30 Dextrose (D50w Syringe) 50 ml Q15M PRN IV DECREASED GLUCOSE; Start 03/02/19 at 21:30 Glucagon (Glucagen) 1 mg Q15M PRN IM DECREASED GLUCOSE; Start 03/02/19 at 21:30 Glucose (Glutose) 15 gm Q15M PRN BUCCAL DECREASED GLUCOSE; Start 03/02/19 at 21:30 Amlodipine Besylate (Norvasc) 10 mg DAILY PO Last administered on 03/05/19 08:10; Admin Dose 10 MG; Start 03/03/19 at 09:00 Benazepril HCl (Lotensin) 20 mg DAILY PO Last administered on 03/05/19 08:10; Admin Dose 20 MG; Start 03/03/19 at 09:00 Fish Oil (Fish Oil) 2,000 mg BID PO Last administered on 03/05/19 08:08; Admin Dose 2,000 MG; Start 03/03/19 at 15:30 Metformin HCl (Glucophage) 1,000 mg BID WITH MEALS PO Last administered on 03/05/19 08:07; Admin Dose 1,000 MG; Start 03/03/19 at 08:00 Linagliptin (Tradjenta) 2.5 mg BID WITH MEALS PO Last administered on 03/05/19 08:08; Admin Dose 2.5 MG; Start 03/03/19 at 08:00 Piperacillin Sod/ Tazobactam Sod 100 ml @ 200 mls/hr Q8 IVPB Last administered on 03/05/19at 13:23; Admin Dose 200 MLS/HR; Start 03/02/19 at 23:00 Insulin Glargine (Lantus) 15 units HS SC Last administered on 03/04/19 20:09; Admin Dose 15 UNITS; Start 03/04/19 at 21:00 Diagnostic Test (Pha) (Accu-Chek) 1 ea 02 XX ; Start 03/05/19 at 02:00 Insulin Aspart (Novolog Insulin Pen) check q6 hours for 24 ho... Q6 SC Last administered on 03/05/19at 12:13; Admin Dose 2 UNIT; Start 03/04/19 at 18:00 LUIGI CHOWDHURY MD March 05, 2019 14:32
--- NOTE | 2019-03-05 19:42 | CONS ---
DATE OF ADMISSION: 03/02/2019 DATE OF CONSULTATION: 03/05/2019 HISTORY OF PRESENT ILLNESS: The patient is a 68-year-old male who was admitted on 03/02/2019 when he was sent in to the emergency room by his primary care doctor. According to the patient, he develope d the painful swelling over the anterior aspect of his right knee without any memorable trauma or ope n injury. Since his admission with the IV antibiotics, he is feeling much better. However, because of the persistent lump over the anterior aspect of the right knee, orthopedic surgery was consulted. PAST MEDICAL HISTORY: He is known to have multiple medical problems including diabetes mellitus, hyp ertension, COPD, history of heart failure. PHYSICAL EXAMINATION: At the time of my examination, he is afebrile. There was mild leukocytosis wi th the WBC count of 12.3. My examination revealed a 68-year-old male who was not in any acute distress. There was an area of h ardness in the size of a small chestnut over the anterior aspect of the right knee at the border of t he prepatellar bursa. There also was some area of redness with slightly increased warmth surrounding the palpable lump. Careful palpation did not reveal any obvious area of fluctuation. Range of toro on of the right hip was full and pain free. There was no evidence of any detectable effusion of the knee itself. DIAGNOSTIC DATA: No x-rays were available. DIAGNOSTIC IMPRESSION: Small palpable soft tissue lump over the anterior aspect of the right knee ov er the superior margin of the prepatellar bursa with surrounding area of cellulitis. RECOMMENDATIONS FOR MANAGEMENT: 1. MRI scan of the right knee. 2. Continue IV antibiotics. 3. Further treatment recommendations pending on the outcome of the MRI scan. Dictated By: EVENS LU MD IK/NTS Conf#: [id number] DID#: [id number] CC: CHRISTIANE ZAYAS MD; LUIGI CHOWDHURY MD;*EndCC*
[2019-03-05] MEDS: MONTELUKAST 10 MG TAB GTB SCH (20:05)
[2019-03-05] MEDS: ATORVASTATIN 40 MG TAB PO SCH (20:05)
[2019-03-05] MEDS: AMITRIPTYLINE 10 MG TAB PO SCH (20:06)
[2019-03-05 20:10] VITALS: BP 115/72; PULSE 88; RESP 19
[2019-03-05] MEDS: INSULIN GLARGINE [LANTus] (100 UNITS/ML) SYG SC SCH ×2 (20:20→21:00)
[2019-03-05] MEDS: Insulin NOVOLOG SS MODERATE Algorithm (SS with meals and bedtime) SC SCH ×2 (20:21→20:57)
[2019-03-06] MEDS: ALBUTEROL HFA 8 GM INHALER INH SCH ×5 (01:00→17:00)
[2019-03-06 02:00] VITALS: BP 115/61; PULSE 82; RESP 20
[2019-03-06] MEDS ORDERED: ACCUCHECK AT 2AM (Patients on SS coverage) XX SCH (02:00)
[2019-03-06] MEDS: PIPER-TAZO 3.375 GM IV (PMX) 100 ML IVPB SCH ×2 (05:51→14:00)
[2019-03-06 07:34] VITALS: BP 112/63; PULSE 88; RESP 18
[2019-03-06] MEDS: Insulin NOVOLOG SS MODERATE Algorithm (SS with meals and bedtime) SC SCH ×3 (08:00→18:00)
[2019-03-06] MEDS: BUPROPION (XL) 150 MG TAB PO SCH (08:32)
[2019-03-06] MEDS: metFORMIN 500 MG TAB PO SCH ×2 (08:32→18:00)
[2019-03-06] MEDS: PREGABALIN 75 MG CAP PO SCH (08:33)
[2019-03-06] MEDS: BENAZEPRIL 20 MG TAB PO SCH (08:33)
[2019-03-06] MEDS: ASPIRIN (EC) 81 MG TAB PO SCH (08:33)
[2019-03-06] MEDS: FISH OIL 1,000 MG CAP PO SCH (08:33)
[2019-03-06] MEDS: DOCUSATE SODIUM 250 MG CAP PO SCH (08:33)
[2019-03-06] MEDS: SPIRONOLACTONE 50 MG TAB PO SCH (08:34)
[2019-03-06] MEDS: AMLODIPINE 10 MG TAB PO SCH (08:34)
[2019-03-06] MEDS: GLIMEPIRIDE 2 MG TAB GTB SCH (08:34)
[2019-03-06] MEDS: LINAGLIPTIN 5 MG TABLET PO SCH ×2 (08:34→18:00)
[2019-03-06] MEDS: TIOTROPIUM 18 MCG CAPSULE INHA DEV INH SCH (08:40)
[2019-03-06] MEDS: NICOTINE (14 MG/24 HR) PATCH TRANSDERM SCH (08:40)
[2019-03-06] MEDS: VANCOMYCIN 1 GM (PMX) 250 ML IVPB SCH (09:46)
--- NOTE | 2019-03-06 13:26 | PDOCDIS ---
Discharge Instructions DIAGNOSIS Discharge Diagnosis 1.Cellulitis of right lower limb-improving but not sufficent to d/c. 2. Systolic and diastolic congestive heart failure 3. Hypertension out of control 4. COPD 5. Heavy cigarette smoker more than 50 years more than a pack a day-refuses to quit. Discussed diet negative damage of the lungs that he requires home oxygen is telling that he has a significant lung damage and to preserve with increased remaining lung he must quit smoking. Patient is refusing to do so rejected NicoDerm patch. 6. BPH 7.Dyslipidemia 8. Obesity 9. Snoring with apnea 10. Ischemic heart disease angina 11. Phosphorus 12. Osteoarthritis 13. Upper and lower back pain 14. Memory impairment 15. Diabetes mellitus type 2 most of the time of control 16.Hypoxemia 17.Unstable gate 17.incomplete data CONDITION [id number] Patient Condition: [id number] Guarded HOME CARE INSTRUCTIONS: [id number] Diet Instructions: [id number] Reduced Calorie ACTIVITY: [id number] Activity Restrictions: [id number] Slowly Increase Activity [id number] Bathing Restrictions: [id number] Shower FOLLOW UP/APPOINTMENTS Follow-up Plan in 7 days to In 10 days to In [address] Multani. SCHOOL/WORK RELEASE May return to School/Work with: LUIGI Alva MD March 06, 2019 13:26
--- NOTE | 2019-03-06 13:31 | DS ---
Date/Time of Note Date/Time of Note DATE: 03/06/19 TIME: 13:28 Discharge Summary Admission/Discharge Info Admit Date/Time March 02, 2019 at 13:49 Discharge Date/Time February at 14:00 Discharge Diagnosis 1.Cellulitis of right lower limb-improving but not sufficent to d/c. 2. Systolic and diastolic congestive heart failure 3. Hypertension out of control 4. COPD 5. Heavy cigarette smoker more than 50 years more than a pack a day-refuses to quit. Discussed diet negative damage of the lungs that he requires home oxygen is telling that he has a significant lung damage and to preserve with increased remaining lung he must quit smoking. Patient is refusing to do so rejected NicoDerm patch. 6. BPH 7.Dyslipidemia 8. Obesity 9. Snoring with apnea 10. Ischemic heart disease angina 11. Phosphorus 12. Osteoarthritis 13. Upper and lower back pain 14. Memory impairment 15. Diabetes mellitus type 2 most of the time of control 16.Hypoxemia 17.Unstable gate 17.incomplete data Patient Condition: Guarded Hospital Course Cellulitis of the right knee area improved, but still continues to be red. No fluid accumulation was detected. Increased rom. Almost no pain. Demands d/c. I preferred him to stay 2-3 more days. I believe we can follow him as outpatient. Explained: if condition worsened immediately contact me( cell given) or come to [facility]. Home Meds Reported Medications Bupropion Hcl* (Bupropion XL*) 150 Mg Tab.er.24h, 150 MG PO DAILY, TAB.SA 03/02/19 Icosapent Ethyl (VASCEPA) 1 Gm Capsule, 2 GM PO BID, CAP 03/02/19 Albuterol Sulfate* (Ventolin HFA*) 18 Gm Hfa.aer.ad, 2 PUFF INHALATION Q4H, #1 INHALER 03/02/19 Docusate Sodium* (Colace*) 250 Mg Capsule, 250 MG PO BID, #60 CAP 03/02/19 Tiotropium [place]* (Spiriva*) 18 Mcg Cap.w.dev, 1 CAP INHALATION DAILY, #30 CAP 03/02/19 Sitagliptin Phos/Metformin HCl (Janumet 50-1,000 mg Tablet) 1 Each Tablet, 1 EACH PO BID, TAB 03/02/19 Pregabalin* (Lyrica*) 75 Mg Capsule, 75 MG PO DAILY, CAP 03/02/19 Amlodipine Besylate/Benazepril (Amlodipine-Benazepril 10-20 mg) 1 Each Capsule, 1 EACH PO DAILY, CAP 03/02/19 Amitriptyline Hcl* (Amitriptyline Hcl*) 10 Mg Tablet, 10 MG PO QHS, #30 TAB 03/02/19 Montelukast Sodium* (Montelukast Sodium*) 10 Mg Tablet, 10 MG PO QHS, #30 TAB 03/02/19 Atorvastatin* (Atorvastatin*) 40 Mg Tablet, 40 MG PO QHS, #30 TAB 03/02/19 Glimepiride* (Glimepiride*) 1 Mg Tablet, 1 MG PO WITH BREAKFAST, TAB 03/02/19 Aspirin* (Aspirin* EC) 81 Mg Tablet.dr, 81 MG PO DAILY, TAB 03/02/19 Ergocalciferol (Vitamin D2) (VITAMIN D2) 50,000 Unit Capsule, 59394 UNIT PO Q 14D, CAP 03/02/19 Follow-up Plan in 7 days to In 10 days to In [address] Multani. Primary Care Provider Nolberto Chowdhury MD Time spent on discharge: > 30 minutes Pending Labs Laboratory Tests Test 03/05/19 15:31 03/05/19 17:08 03/05/19 20:12 03/06/19 01:40 HIV (1&2) NEGATIVE (NEGAT Antibody [place]) Bedside 141 234 140 Glucose mg/dL (70-220) mg/dL (70-220) mg/dL (70-220) Test 03/06/19 08:17 03/06/19 08:27 03/06/19 12:06 Bedside 134 144 Glucose mg/dL (70-220) mg/dL (70-220) White Blood 12.2 Count 10^3/ul (4.8-1 0.8) Red Blood 5.15 Count 10^6/ul (4.70- 6.10) Hemoglobin 14.6 g/dl (14.0-18. 0) Hematocrit 46.8 % (42.0-52.0) Mean 90.9 Corpuscular fl (82.0-101.0 Volume ) Mean 28.3 Corpuscular pg (29.0-33.0) Hemoglobin Mean 31.2 Corpuscular g/dl (32.0-37. Hemoglobin Conc 0) ent Red Cell 13.2 Distribution % (11.5-14.5) Width Platelet Count 346 10^3/UL (140-4 15) Mean Platelet 8.5 Volume fl (7.4-10.4) Immature 1.100 Granulocytes % % (0.001-0.429 ) Neutrophils % 68.4 % (39.0-77.0) Lymphocytes % 19.2 % (15.0-51.0) Monocytes % 8.2 % (0.0-11.0) Eosinophils % 2.6 % (0.0-7.0) Basophils % 0.5 % (0.0-2.0) Nucleated Red 0.0 Blood Cells % /100WBC (0.0-0 .0) Immature 0.130 Granulocytes # 10^3/ul (0.0-0 .031) Neutrophils # 8.4 10^3/ul (1.6-7 .5) Lymphocytes # 2.3 10^3/ul (0.8-2 .9) Monocytes # 1.0 10^3/ul (0.3-0 .9) Eosinophils # 0.3 10^3/ul (0.0-0 .5) Basophils # 0.1 10^3/ul (0.0-0 .1) Nucleated Red 0.0 Blood Cells # 10^3/ul (0.0-0 .0) Sodium Level 137 mmol/L (135-14 4) Potassium 5.1 Level mmol/L (3.5-5. 1) Chloride Level 96 mmol/L (97-110 ) Carbon Dioxide 34 Level mmol/L (21-31) Anion Gap 7 (5-13) Blood Urea 18 Nitrogen mg/dl (7-20) Creatinine 0.82 mg/dl (0.61-1. 24) Est Glomerular > 60 Filtrat mL/min (>60) Rate mL/min Glucose Level 152 mg/dl (70-220) Calcium Level 9.0 mg/dl (8.4-10. 2) Total 0.5 Bilirubin mg/dl (0.2-1.3 ) Direct 0.00 Bilirubin mg/dl (0.00-0. 20) Indirect 0.5 Bilirubin mg/dl (0-1.1) Aspartate Amino 32 Transf (AST/SGO IU/L (15-46) T) Alanine 25 Aminotransferas IU/L (13-69) e (ALT/SGPT) Alkaline 77 Phosphatase IU/L (42-121) Total Protein 7.6 g/dl (6.1-8.1) Albumin 3.8 g/dl (3.3-4.9) Globulin 3.80 g/dl (1.3-3.2) Albumin/Globuli 1.00 n Ratio Vancomycin < 5.0 Level Trough ug/ml (10.0-20 .0) NOLBERTO CHOWDHURY MD March 06, 2019 13:31
--- NOTE | 2019-03-06 15:18 | CONS ---
Assessment/Plan Assessment/Plan Hospital Course (Demo Recall) 1. RLE cellulitis 2. Hx of CHF 3. Hx of copd 4. hx of DM poorly controlled Recommendation: Agree with discharge with IV Vanco x 7days We would be happy to see in office for follow-up, information given to patient. Consider picc line MRSA nasal screen (pending) f/u bcxs and mrsa screen Above plan d/w via [email or web address] Consultation Date/Type/Reason Admit Date/Time March 02, 2019 at 13:49 Initial Consult Date 03/05/19 Requesting Provider: LUIGI CHOWDHURY MD Date/Time of Note DATE: 03/06/19 TIME: 15:09 24 HR Interval Summary Free Text/Dictation Pending discharge home today with HH on Vancomycin IV. Pt reports the right knee swelling and pain has decreased. Constitutional: no complaints Detailed Summary Eyes: no complaints ENT: no complaints Respiratory: no complaints Cardiovascular: no complaints Gastrointestinal: no complaints Genitourinary: no complaints Musculoskeletal: swelling, other (R knee mild pain and swelling) Skin: erythema (R kneee) Neurologic: no complaints Endocrine: no complaints Psychological: no complaints Exam/Review of Systems Exam Vitals Vital Signs Date Temp Pulse Resp B/P (MAP) Pulse Ox O2 O2 Flow FiO2 Time Delivery Rate 03/06/19 98.4 88 18 112/63 93 Room Air 07:34 (79) 03/05/19 2.0 10:08 Intake and Output 03/05/19 03/05/19 03/06/19 1515:00 23:00 07:00 IntakeIntake Total 350 ml 700 ml 100 ml BalanceBalance 350 ml 700 ml 100 ml Constitutional: alert, oriented, well developed Psych: nl mood/affect Head: normocephalic, atraumatic Eyes: nl conjunctiva, PERRL ENMT: mucosa pink and moist Neck: supple Respiratory: clear to auscultation Cardiovascular: regular rate and rhythm Gastrointestinal: soft, non-tender, bowel sounds Extremities: edema, tenderness, other (R knee erythrma and swelling) Neurological: nl mental status, nl speech, nl strength Results Result Diagram: 03/06/19 0827 03/06/19 0827 Results 24hrs Laboratory Tests Test 03/05/19 15:31 03/05/19 17:08 03/05/19 20:12 03/06/19 01:40 HIV (1&2) Antibody NEGATIVE Bedside Glucose 141 234 H 140 Test 03/06/19 08:17 03/06/19 08:27 03/06/19 12:06 Bedside Glucose 134 144 White Blood Count 12.2 H Red Blood Count 5.15 Hemoglobin 14.6 Hematocrit 46.8 Mean Corpuscular 90.9 Volume Mean Corpuscular 28.3 L Hemoglobin Mean Corpuscular 31.2 L Hemoglobin Concent Red Cell 13.2 Distribution Width Platelet Count 346 Mean Platelet Volume 8.5 Immature 1.100 H Granulocytes % Neutrophils % 68.4 Lymphocytes % 19.2 Monocytes % 8.2 Eosinophils % 2.6 Basophils % 0.5 Nucleated Red Blood 0.0 Cells % Immature 0.130 H Granulocytes # Neutrophils # 8.4 H Lymphocytes # 2.3 Monocytes # 1.0 H Eosinophils # 0.3 Basophils # 0.1 Nucleated Red Blood 0.0 Cells # Sodium Level 137 Potassium Level 5.1 Chloride Level 96 L Carbon Dioxide Level 34 H Anion Gap 7 Blood Urea Nitrogen 18 Creatinine 0.82 Est Glomerular > 60 Filtrat Rate mL/min Glucose Level 152 Calcium Level 9.0 Total Bilirubin 0.5 Direct Bilirubin 0.00 Indirect Bilirubin 0.5 Aspartate Amino 32 Transf (AST/SGOT) Alanine 25 Aminotransferase (AL T/SGPT) Alkaline Phosphatase 77 Total Protein 7.6 Albumin 3.8 Globulin 3.80 H Albumin/Globulin 1.00 Ratio Vancomycin Level < 5.0 L Trough Imaging Imaging PROCEDURE: XR right Knee. CLINICAL INDICATION: Pain and swelling in the right knee. Cellulitis. TECHNIQUE: Noncontrast MRI examination of the right knee, with axial, sagittal and coronal images. Proton density sequences were employed, with and without fat saturation. IMPRESSION: 1. Soft tissue edema and swelling is seen over the bilateral anterior knee, greater laterally. 2. There is a fluid collection seen at the anterior midline soft tissues over the inferior pole of the patella and superior margin of the patellar tendon, suggesting bursitis. 3. Mild tendinosis of the proximal patellar tendon. 4. Complex tear of the posterior horn, body and anterior lateral meniscus, with undersurface extension. 5. The medial meniscus is intact. 6. The ACL and PCL are unremarkable, without evident tear. 7. There is a marrow conversion process in the distal diaphysis and metadiaphysis of the partially visualized femur, otherwise nonspecific. RPTAT: [facility] Physician Camille Date Time Electronically viewed and signed by Tyson Obrien Physician on 03/06/2019 02:38 Medications Medication Current Medications Acetaminophen (Tylenol Tab) 500 mg Q8 PRN PO MILD PAIN(1-3)OR ELEVATED TEMP; Start 03/02/19 at 20:00 Diphenhydramine HCl (Benadryl) 25 mg Q8 PRN PO ITCHING Last administered on 03/02/19 22:08; Admin Dose 25 MG; Start 03/02/19 at 20:00 Albuterol (Ventolin Hfa) 2 puff Q4H RESP THERAPY INH Last administered on 03/06/19 08:32; Admin Dose 2 PUFF; Start 03/02/19 at 21:00 Amitriptyline HCl (Elavil) 10 mg HS PO Last administered on 03/05/19 20:06; Admin Dose 10 MG; Start 03/02/19 at 21:00 Aspirin (Halfprin) 81 mg DAILY PO Last administered on 03/06/19 08:33; Admin Dose 81 MG; Start 03/03/19 at 09:00 Atorvastatin Calcium (Lipitor) 40 mg HS PO Last administered on 03/05/19 20:05; Admin Dose 40 MG; Start 03/02/19 at 21:00 Bupropion HCl (Wellbutrin Xl) 150 mg DAILY PO Last administered on 03/06/19 08:32; Admin Dose 150 MG; Start 03/03/19 at 09:00 Docusate Sodium (Colace) 250 mg BID PO Last administered on 03/06/19 08:33; Admin Dose 250 MG; Start 03/02/19 at 21:00 Glimepiride (Amaryl) 1 mg AC BREAKFAST GTB Last administered on 03/06/19 08:34; Admin Dose 1 MG; Start 03/03/19 at 07:00 Montelukast Sodium (Singulair) 10 mg HS GTB Last administered on 03/05/19 20:05; Admin Dose 10 MG; Start 03/02/19 at 21:00 Pregabalin (Lyrica) 75 mg DAILY PO Last administered on 03/06/19at 08:33; Admin Dose 75 MG; Start 03/03/19 at 09:00 Tiotropium [place] (Spiriva) 1 inh DAILY INH Last administered on 03/03/19at 08:39; Admin Dose 1 INH; Start 03/03/19 at 09:00 Nicotine (Nicoderm 14 Mg/ 24hr) 1 patch DAILY TRANSDERM ; Start 03/02/19 at 20:30 Spironolactone (Aldactone) 50 mg DAILY PO Last administered on 03/06/19 08:34; Admin Dose 50 MG; Start 03/02/19 at 20:30 Miscellaneous Information 1 ea NOTE XX ; Start 03/02/19 at 21:30 Glucose (Glutose) 15 gm Q15M PRN PO DECREASED GLUCOSE; Start 03/02/19 at 21:30 Glucose (Glutose) 22.5 gm Q15M PRN PO DECREASED GLUCOSE; Start 03/02/19 at 21:30 Dextrose (D50w Syringe) 25 ml Q15M PRN IV DECREASED GLUCOSE; Start 03/02/19 at 21:30 Dextrose (D50w Syringe) 50 ml Q15M PRN IV DECREASED GLUCOSE; Start 03/02/19 at 21:30 Glucagon (Glucagen) 1 mg Q15M PRN IM DECREASED GLUCOSE; Start 03/02/19 at 21:30 Glucose (Glutose) 15 gm Q15M PRN BUCCAL DECREASED GLUCOSE; Start 03/02/19 at 21:30 Amlodipine Besylate (Norvasc) 10 mg DAILY PO Last administered on 03/06/19at 08:34; Admin Dose 10 MG; Start 03/03/19 at 09:00 Benazepril HCl (Lotensin) 20 mg DAILY PO Last administered on 03/06/19 08:33; Admin Dose 20 MG; Start 03/03/19 at 09:00 Fish Oil (Fish Oil) 2,000 mg BID PO Last administered on 03/06/19 08:33; Admin Dose 2,000 MG; Start 03/03/19 at 15:30 Metformin HCl (Glucophage) 1,000 mg BID WITH MEALS PO Last administered on 03/06/19at 08:32; Admin Dose 1,000 MG; Start 03/03/19 at 08:00 Linagliptin (Tradjenta) 2.5 mg BID WITH MEALS PO Last administered on 03/06/19at 08:34; Admin Dose 2.5 MG; Start 03/03/19 at 08:00 Piperacillin Sod/ Tazobactam Sod 100 ml @ 200 mls/hr Q8 IVPB Last administered on 03/06/19at 05:51; Admin Dose 200 MLS/HR; Start 03/02/19 at 23:00 Insulin Glargine (Lantus) 15 units HS SC Last administered on 03/04/19at 20:09; Admin Dose 15 UNITS; Start 03/04/19 at 21:00 Insulin Aspart (Novolog Insulin Pen) (Adult SC Insulin - Moder... WITH MEALS BEDTIME SC Last administered on 03/05/19at 20:21; Admin Dose 2 UNIT; Start 03/05/19 at 20:05 Vancomycin HCl 250 ml @ 125 mls/hr Q12H IVPB ; Start 03/06/19 at 21:00 Vancomycin HCl 250 ml @ 125 mls/hr Q12H IVPB ; Start 03/06/19 at 21:00 HILARIA LVOE NP March 06, 2019 15:18
--- NOTE | 2019-03-06 15:19 | RADRPT ---
Echocardiogram Report Patient Name: HERI PERESESPatient ID: [id number] : 1950 (68y 4m)Study Date: 03/05/2019 11:21:27 AM Gender: MAccession #: [id number] Tech: Raman Banks [facility] Location: [id number]-A Ref.Physician: CHRISTIN DOTSON Height(Cm): BSA: Weight(Kg): Quality: AdequateOrder Physician: CHRISTIN DOTSON Account #: Procedures: Echocardiographic Report: Transthoracic echocardiogram with complete 2D, M-Mode, and doppler examination. Indications: Possible cardiomyopathy. Measurements: 2D/M Mode Doppler Measurement Value Normal Range Measurement Value Normal Range LVIDd 2D 4.4 [ 4.2 - 5.8 ] cm AV Peak Fritz 1.5 [ 100.0 - 170.0 ] cm/sec LVIDs 2D 2.8 [ 2.5 - 4.0 ] cm AV Peak PG 9.0 [ 2.0 - 9.0 ] mmHg LVPWd 2D 1.1 [ 0.6 - 1.0 ] cm LVOT Peak Fritz 0.8 [ 70.0 - 110.0 ] cm/sec IVSd 2D 1.1 [ 0.6 - 1.0 ] cm LVOT Peak PG 3.0 [ 2.0 - 6.0 ] mmHg AoR Diam 2D 3.1 [ 2.6 - 3.4 ] cm MV E Peak Fritz 0.9 [ 60.0 - 130.0 ] cm/sec EDV 2D 85.8 [ 62.0 - 150.0 ] ml MV A Peak Fritz 1.1 [ 100.0 - 120.0 ] cm/sec ESV 2D 29.6 [ 21.0 - 61.0 ] ml MV E/A 0.8 [ 0.8 - 1.5 ] ratio EF 2D 65.5 [ 52.0 - 72.0 ] percent MV Decel Time 180 [ 104 - 258 ] msec LA Dimen 2D 3.5 [ 3.0 - 4.0 ] cm Lat E` Fritz 0.1 [ 10.0 - 15.0 ] cm/sec Lateral E/E` 13.7 [ 1.0 - 2.0 ] ratio MV E/A 0.8 [ 0.8 - 1.5 ] ratio Findings: Left Ventricle: Normal left ventricular systolic function. Normal left ventricular cavity size. Left ventricular wall thickness upper limits of normal. Ejection fraction is visually estimated at 60 %. Tissue Doppler/Mitral Doppler indices are consistent with impaired relaxation (Stage I diastolic dysfunction). Right Ventricle: Normal right ventricular size. Normal right ventricular systolic function. Left Atrium: There is mild enlargement of left atrium. Right Atrium: The right atrium is normal in size. Mitral Valve: Mild mitral annular calcification. Trace mitral regurgitation. Aortic Valve: Normal appearance of the aortic valve. No significant aortic stenosis or insufficiency. No hemodynamically significant aortic stenosis by doppler. Tricuspid Valve: Normal appearance of the tricuspid valve. Unable to obtain RVSP due to minimal presence of tricuspid regurgitation. Pericardium: Normal pericardium with no significant pericardial effusion. Aorta: Normal aortic root. IVC: Normal size and normal respiratory collapse consistent with normal right atrial pressure. Conclusions: Normal left ventricular systolic function. Normal left ventricular cavity size. Left ventricular wall thickness upper limits of normal. Ejection fraction is visually estimated at 60 %. Tissue Doppler/Mitral Doppler indices are consistent with impaired relaxation (Stage I diastolic dysfunction). No significant valvular stenosis or regurgitation seen. Unable to obtain RVSP due to minimal presence of tricuspid regurgitation. Normal size and normal respiratory collapse consistent with normal right atrial pressure. Electronically Signed By: Christin Dotson 2019-03-06 15:18:56 PDT
[2019-03-06] MEDS ORDERED: VANCOMYCIN 1 GM (PMX) 250 ML IVPB ONE (15:30)
[2019-03-06] MEDS ORDERED: VANCOMYCIN 1 GM (PMX) 250 ML IVPB SCH ×3 (21:00)
== END 2019-03-06 18:20 | disposition home health service (06) | DRG 603 ==
LOC: E/R 12:11 → 5EC 13:49
PROVIDERS: ADMIT Family Medicine; ATTEND Family Medicine
DX: L03.115 Cellulitis of right lower limb (principal); I50.40 Unspecified combined systolic (congestive) and diastolic (congestive) heart failure; I11.0 Hypertensive heart disease with heart failure; E66.9 Obesity, unspecified; Z68.31 Body mass index [BMI] 31.0-31.9, adult; I25.119 Atherosclerotic heart disease of native coronary artery with unspecified angina pectoris; E11.65 Type 2 diabetes mellitus with hyperglycemia; E78.5 Hyperlipidemia, unspecified; J44.9 Chronic obstructive pulmonary disease, unspecified; N40.0 Benign prostatic hyperplasia without lower urinary tract symptoms; F17.210 Nicotine dependence, cigarettes, uncomplicated; R09.02 Hypoxemia; R06.81 Apnea, not elsewhere classified; R41.3 Other amnesia; Z79.82 Long term (current) use of aspirin; Z79.84 Long term (current) use of oral hypoglycemic drugs
CPT/HCPCS: 36415; 71045; 73721; 80048; 80053; 80202; 82565; 82962; 83605; 84484; 84520; 85025; 86703; 87081; 93306; 93971; J1815; J2543; J3370